=== PATIENT | male | born 1950 | race Caucasian/White ===

== ENCOUNTER 2019-02-05 09:27 | Day surgery (SDC) | payer MEDICARE ==
[~2019-02-05] VITALS: Ht 175.3 cm; Wt 95.9 kg
[~2019-02-05 09:27] MED LIST: Amaryl1 MG PO; Aspir 8181 MG PO; FENO145 PO; METF500 PO; METO25ER PO
--- NOTE | 2019-02-05 10:30 | NUR ---
02/05/19 1030 Eleni Santos History, Chart, Medications and Allergies reviewed before start of procedure. PATIENT CONFIRMS NPO STATUS AND AGREES WITH SCHEDULED PROCEDURE. MONITOR INTACT WITH CONTINUOUS PULSE OXIMETRY AND INTERMITTENT BP. O2 VIA N/C INTACT THROUGHOUT SEDATION/PROCEDURE. 3-LEAD EKG REVIEWED WITH PHYSICIAN PRIOR TO START OF PROCEDURE. PATIENT DETERMINED TO BE ASA APPROPRIATE FOR PROPOFOL SEDATION PRIOR TO START OF PROCEDURE BY DR. TEIXEIRA.
--- NOTE | 2019-02-05 10:34 | NUR ---
Ambulatory in Day Surgery History, Chart, Medications and Allergies reviewed before start of procedure.Patient confirms NPO status and agrees with scheduled surgery. Patient states colon prep results clear.Lungs clear T/O to Auscultation. Patient States Post-Procedure ride home has been arranged.
--- NOTE | 2019-02-05 11:15 | NUR ---
REPORT FROM RAINE BONILLA. PT DROWSY. VSS.
--- NOTE | 2019-02-05 11:32 | NUR ---
Patient up to Ambulate independently. Gait steady. Discharge instructions reviewed with patient. Patient verbalizes understanding. Copy given to patient to take home. Patient States Post-Procedure ride home has been arranged. Discharged via wheelchair to private car for ride home. HIGH FIBER DIET PAMPHLET SENT WITH PT. ALL BELONINGS RETURNED TO PATIENT.
== END 2019-02-05 22:40 | disposition home or self-care (01) ==
LOC: ORSCMMR 09:27 → ORD 10:30 → ORSCMMR 22:40
PROVIDERS: Internal Medicine Gastroenterology
PROC: 0DBN8ZX Excision of Sigmoid Colon, Via Natural or Artificial Opening Endoscopic, Diagnostic (ICD-10-PCS; principal; 2019-02-05 10:30)
PROC: 0DBM8ZX Excision of Descending Colon, Via Natural or Artificial Opening Endoscopic, Diagnostic (ICD-10-PCS; principal; 2019-02-05 10:30)
PROC: 0DBK8ZX Excision of Ascending Colon, Via Natural or Artificial Opening Endoscopic, Diagnostic (ICD-10-PCS; principal; 2019-02-05 10:30)
DX: Z12.11 Encounter for screening for malignant neoplasm of colon (principal); D12.2 Benign neoplasm of ascending colon; D12.4 Benign neoplasm of descending colon; K63.5 Polyp of colon; E11.9 Type 2 diabetes mellitus without complications; I25.2 Old myocardial infarction; E78.00 Pure hypercholesterolemia, unspecified; Z79.82 Long term (current) use of aspirin; Z79.899 Other long term (current) drug therapy
CPT/HCPCS: 82947; 88305; J2704; J7120

== ENCOUNTER 2022-05-13 03:56 | Inpatient (IN) | payer MEDICARE ==
[~2022-05-13] VITALS: Ht 175.3 cm; Wt 102.4 kg
[2022-05-13 04:25] LABS: Base Excess Venous -15.6 mmol/L; PCO2 Venous 38.8 mmHg (38-42)
[2022-05-13 04:26] LABS: pH Blood Venous 7.15 (7.34-7.37)
[2022-05-13 04:30] LABS: Calcium, Ionized (POC) 0.77 mmol/L (1.10-1.46); Chloride (POC) 96 mmol/L (98-108); Creatinine (POC) 3.6 mg/dL (0.8-1.3); Glucose (ISTAT POC) 658 mg/dL (70-99); Hemoglobin (POC) 20.4 g/dL (13.5-17.5); Potassium (POC) 3.7 mmol/L (3.5-5.5); Sodium (POC) 128 mmol/L (135-148); Total CO2 (POC) 14 mmol/L (21-32)
[2022-05-13 04:45] LABS: BASOPHILS ABSOLUTE AUTO 0.08 K/mm3 (0.00-0.23); BASOPHILS PERCENT AUTO 0 % (0-2); EOSINOPHILS PERCENT AUTO 0 % (0-6); Hemoglobin 19.1 g/dL (13.5-17.5); IMMATURE GRAN ABSOLUTE AUTO 0.18 K/mm3 (0.00-0.10); IMMATURE GRAN PERCENT AUTO 1 % (0-1); LYMPHOCYTES ABSOLUTE AUTO 1.38 K/mm3 (0.84-5.20); LYMPHOCYTES PERCENT AUTO 6 % (21-46); MONOCYTES ABSOLUTE AUTO 1.93 K/mm3 (0.16-1.47); MONOCYTES PERCENT AUTO 9 % (4-13); Mean Corpuscular HGB 29.9 pg (26.0-34.0); Mean Corpuscular HGB Conc 33.5 g/dL (31.5-36.5); Mean Corpuscular Volume 89 fL (80-100); Mean Platelet Volume 11.8 fL (9.1-12.4); NEUTROPHILS ABSOLUTE AUTO 17.89 K/mm3 (1.96-9.15); NEUTROPHILS PERCENT AUTO 83 % (41-73); Platelet Count 189 K/mm3 (150-400); RDW Coefficient Variation 12.6 % (11.7-14.2); RDW Standard Deviation 40.9 fL (35.1-46.3); Red Blood Cell Count 6.39 M/mm3 (4.30-5.90); White Blood Cell Count 21.46 K/mm3 (4.00-11.30)
[2022-05-13] MEDS ORDERED: GLIMEPIRIDE2 M2 PO (04:50)
[2022-05-13] MEDS ORDERED: FENOFIBRATE145 MG PO (04:50)
[2022-05-13] MEDS ORDERED: Glipizide Xl2.5 MG PO (04:50)
[2022-05-13] MEDS ORDERED: LOSARTAN POTASS25 M2 PO (04:51)
[2022-05-13 05:10] LABS: Albumin, Blood 3.4 g/dL (3.4-5.0); Albumin/Globulin Ratio 0.9 (0.8-1.8); Bilirubin, Direct 0.6 mg/dL (0.0-0.3); Bilirubin, Indirect 0.9 mg/dL (0.1-0.7); Bilirubin, Total 1.5 mg/dL (0.1-1.0); Bun/Creatinine Ratio 15.1 (12.0-20.0); Calcium, Blood 7.4 mg/dL (8.5-10.1); Creatinine, Blood 3.38 mg/dL (0.60-1.20); Globulin, Blood 3.7 g/dL (2.2-4.0); Magnesium, Blood 2.1 mg/dL (1.6-2.4); Potassium, Blood 3.7 mmol/L (3.5-5.5); Total Protein, Blood 7.1 g/dL (6.4-8.2)
[2022-05-13 05:19] LABS: Beta-hydroxybutyrate 6.9 mg/dL (0.2-2.8)
[2022-05-13 05:43] LABS: Influenza A, PCR NEGATIVE (NEGATIVE); Influenza B, PCR NEGATIVE (NEGATIVE); Resp Syncytial Virus, PCR NEGATIVE (NEGATIVE); SARS-Cov-2 (COVID-19) PCR, MMC NEGATIVE (NEGATIVE)
--- NOTE | 2022-05-13 07:14 | NUR ---
PATIENT TO ICU 9 AT 0615 FROM ED. PATIENT IS ALERT AND ORIENTED X4. 02 SATS 95% ON 10L NRB, RR 29. HR ST 150, BP STABLE. PATIENT DENIES CP/PRESSURE. INSULIN DRIP INF, CONTINUED AT ED RATE UNTIL LABS RESULT. SODIUM BICARB INF WELL PUSH GIVEN. CALL LIGHT IN REACH AND REPORT GIVEN TO DAYSHIFT RN.
[2022-05-13 10:12] LABS: Anion Gap 16 mmol/L (6-16); Blood Urea Nitrogen 48 mg/dL (8-24); Bun/Creatinine Ratio 14.5 (12.0-20.0); CO2, Blood 19 mmol/L (21-32); Chloride, Blood 100 mmol/L (98-108); Glomerular Filtration Rate 19 (60-); Glucose, Blood 430 mg/dL (70-99); Sodium, Blood 135 mmol/L (136-145)
[2022-05-13 10:13] LABS: Potassium, Blood 4.7 mmol/L (3.5-5.5)
[2022-05-13 12:37] LABS: Bun/Creatinine Ratio 16.9 (12.0-20.0); Calcium, Blood 6.7 mg/dL (8.5-10.1); Creatinine, Blood 2.95 mg/dL (0.60-1.20); Potassium, Blood 4.2 mmol/L (3.5-5.5)
[2022-05-13 12:59] LABS: CHOL/HDL RATIO 4.4; Cholesterol 66 mg/dL (50-200); HDL Cholesterol 15 mg/dL (>39); LDL/HDL RATIO 1.6; Low Density Lipoprotein Chol 24 mg/dL (0-110); Magnesium, Blood 1.2 mg/dL (1.6-2.4); Triglycerides 133 mg/dL (30-160); Very Low Density Lipoprot Chol 26 mg/dL (6-32)
[2022-05-13 16:39] LABS: CPK Creatine Kinase 833 U/L (39-308)
--- NOTE | 2022-05-13 17:42 | NUR ---
SHIFT SUMMARY NO ACUTE CHANGES THIS SHIFT. PT REMAINS ON 4L O2 NC. RR MID 30'S. PT DENIES PAIN, SOB, OR NAUSEA THIS SHIFT. PT BECOMING MORE CONFUSED/FORGETFUL THIS AFTERNOON. INSULIN GTT INFUSING AT 4 UNIT/HR AT THIS TIME AND NS AT 150 ML/HR. ABD REMAINS DISTENDED AND FIRM. PT WITHOUT ANY VOIDS THIS SHIFT, BLADDER SCANNED THIS AFTERNOON WITH 66 ML NOTED. PT WITH PG TO ALEX C/D/I AND 3 PIV'S. PT MED WITH IV LOPRESSOR PRN FOR HR 140'S, OTHERWISE VITAL SIGNS STABLE. WILL CONTINUE TO MONITOR AND REPORT OFF TO ONCOMING RN.
[2022-05-13 17:47] LABS: Bun/Creatinine Ratio 20.3 (12.0-20.0); Calcium, Blood 7.1 mg/dL (8.5-10.1); Creatinine, Blood 2.56 mg/dL (0.60-1.20); Potassium, Blood 3.7 mmol/L (3.5-5.5)
[2022-05-13 18:14] LABS: pH Blood Venous 7.29 (7.34-7.37)
[2022-05-13 18:15] LABS: Base Excess Venous -3.4 mmol/L; Bicarbonate Venous 19.8 mmol/L (24.0-30.0); PCO2 Venous 47.8 mmHg (38-42)
[2022-05-13 19:15] LABS: Source, Urine Straight Cath
--- NOTE | 2022-05-13 19:15 | NUR ---
DECOMPENSATION/INTUBATION PT WITH ACUTE RESPIRATORY DECOMPENSATION. PT TRIALED ON BIPAP AND GIVEN BREATHING TX INITIALLY. PT CONTINUED TO BE DIAPHORETIC AND RR 50'S. NOTIFIED DR QUINTERO. TECHNICAL MAINTENANCE SPECIALIST CONSULT OBTAINED. DR HOYT AT BEDSIDE TO SEE PT AT 1800. PT FAMILY NOTIFIED OF PLAN TO INTUBATE. PT SEDATED WITH VERSED AND PROPOFOL At 1851. PT INTUBATED AT 1856 WITH 8.0 ETT. COLOR CHANGE NOTED, BILAT BREATH SOUNDS NOTED. PT STARTED ON LEVOPHED GTT FOR HYPOTENSION AND LR BOLUS INFUSING. OGT PLACED WITH IMMEDIATE RETURN OF DARK BROWN/RED OUTPUT NOTED. BAH PLACED, UA SENT. DR HOYT AT BEDSIDE PLACING TRIALYSIS CATH AT THIS TIME. BEDSIDE REPORT TO NOC SHIFT RN TO ASSUME CARE GIVEN.
[2022-05-13 19:21] LABS: Appearance, Urine Cloudy (Clear); Blood, Urine 3+ (Neg); Color, Urine Yellow (P-Yellow); Glucose Qualitative, Urine 3+ (Neg); Ketones, Urine 1+ (Neg); Leukocyte Esterase, Urine 1+ (Neg); Nitrite, Urine Neg (Neg); Protein, Urine 2+ (Neg); Specific Gravity, Urine 1.025 (1.003-1.022); Urobilinogen, Urine NORM (Normal)
[2022-05-13 19:45] LABS: Bilirubin, Urine 1+ (Neg)
[2022-05-13 19:46] LABS: Bacteria Many /hpf; Mucus Light (0-Heavy); Squamous Epithelial Cells Few /hpf (Few); Transitional Epithelial Cells Rare /hpf (0-Rare)
[2022-05-13 22:00] LABS: International Normalized Ratio 1.42; Prothrombin Time Results 14.6 Sec (9.7-11.5)
[2022-05-13 22:32] LABS: PCO2 Arterial 31.1 mmHg (35-45); PO2 Arterial 323 mmHg (80-100); pH Blood Arterial 7.35 (7.35-7.45)
[2022-05-13 22:56] LABS: Creatine Kinase MB 3.2 ng/mL (0.0-3.6); Creatine Kinase MB Index 0.3 (0.0-4.0)
[2022-05-14 03:52] LABS: Hematocrit 40.8 % (37.0-53.0); Hemoglobin 14.5 g/dL (13.5-17.5); Mean Corpuscular HGB 30.5 pg (26.0-34.0); Mean Corpuscular HGB Conc 35.5 g/dL (31.5-36.5); Mean Corpuscular Volume 86 fL (80-100); Platelet Count 143 K/mm3 (150-400); RDW Coefficient Variation 12.8 % (11.7-14.2); RDW Standard Deviation 40.4 fL (35.1-46.3); Red Blood Cell Count 4.76 M/mm3 (4.30-5.90); White Blood Cell Count 17.36 K/mm3 (4.00-11.30)
[2022-05-14 04:52] LABS: BAND PERCENT MAN 7 % (0-8); BASOPHILS PERCENT MAN 0 % (0-2); EOSINOPHILS PERCENT MAN 0 % (0-6); LYMPHOCYTES ABSOLUTE MAN 0.69 K/mm3 (0.84-5.20); LYMPHOCYTES PERCENT MAN 4 % (21-46); METAMYELOCYTE ABSOLUTE MAN 0.52 K/mm3 (0.00-0.00); METAMYELOCYTE PERCENT MAN 3 % (0-0); MONOCYTES ABSOLUTE MAN 1.21 K/mm3 (0.16-1.47); MONOCYTES PERCENT MAN 7 % (4-13); MYELOCYTE ABSOLUTE MAN 0.17 K/mm3 (0.00-0.00); MYELOCYTE PERCENT MAN 1 % (0-0); NEUTROPHILS ABSOLUTE MAN 14.75 K/mm3 (1.96-9.15); SEG NEUTROPHILS PERCENT MAN 78 % (41-73); TOTAL CELLS COUNTED 100
[2022-05-14 05:45] LABS: Albumin, Blood 2.1 g/dL (3.4-5.0); Bilirubin, Direct 0.4 mg/dL (0.0-0.3); Bilirubin, Indirect 0.4 mg/dL (0.1-0.7); Bilirubin, Total 0.8 mg/dL (0.1-1.0); Bun/Creatinine Ratio 16.7 (12.0-20.0); Creatinine, Blood 3.47 mg/dL (0.60-1.20); Phosphorus, Blood 2.3 mg/dL (2.5-4.9); Potassium, Blood 4.2 mmol/L (3.5-5.5)
[2022-05-14 05:47] LABS: Albumin/Globulin Ratio 0.8 (0.8-1.8); Calcium, Blood 5.6 mg/dL (8.5-10.1); Globulin, Blood 2.7 g/dL (2.2-4.0)
[2022-05-14 05:48] LABS: Total Protein, Blood 4.8 g/dL (6.4-8.2)
--- NOTE | 2022-05-14 06:22 | NUR ---
SHIFT SUMMARY PATIENT REMAINS INTUBATED AND SEDATED. PROPOFOL AND PRECEDEX ON SB, VERSED @ 1.5 MG/HR, VASOPRESSIN ON SB, LEVOPHED @ 10 MCG/MIN, NICKI-SYNEPHRINE @ 100MCG/MIN, NS @ 200ML/HR, AND INSULIN @ 5 UNITS/HR. VENT SETTINGS AC/VC 16/500/8/40% WITH SPO2 MID TO HIGH 90'S. RR 17-25. PATIENT IS BECOMING MORE RESPONSIVE. ABLE TO MOVE HEAD SIDE TO SIDE AND LIFT ARMS, SQUEEZES HANDS, AND ATTEMPTS TO OPEN EYES. DURING THIS TIME PATIENT BEGAN GRIMACING MORE. CALL MADE TO DR. PETIT AND ORDERS RECEIVED FOR FENTANYL 50MCG IV Q1H PRN. ONE DOSE GIVEN AND PATIENT STOPPED GRIMACING AND BECAME LESS TENSE. LUNG SOUNDS REMAIN CLEAR WITH MINIMAL ETT SECRETIONS. BT ACTIVE X 4 WITH SEVERELY DISTENDED ABD FIRM TO PALPATION. TEMP BAH PATENT AND DRAINED 275ML OF DARK VINAYAK URINE. NO BM THIS SHIFT. OGT HAD 900ML DARK BROWN OUTPUT WITH BILE. ART LINE AND TRIALYSIS CATHETER PATENT AND BOTH DRESSINGS CHANGED THIS SHIFT. CRITICAL CALCIUM OF 5.6-IONIZED CALCIUM ORDERED. NO OTHER CHANGES DURING SHIFT.
--- NOTE | 2022-05-14 07:15 | NUR ---
Assumed care of pt at 0700. Report received from Cary BONILLA. Pt receiving versed at 1.5 mg/hr. Propofol off. RASS -1. Pt able to nod head yes/no to answer questions. Follows commands. Pt appears comfortable and free of pain. Moves around in bed but is receptive to verbal calming cues and therapeutic communication. 8.0 cm ETT is at expected location of 25 cm at gums. Vent settings ACVC 16/500/8/40%. SpO2 90% or greater per nasal SpO2 monitor. ETCO2 20. R axilla arterial line zeroed at level of phlebostatic access. Neosynephrine at 100 mcg/min. Levophed at 8 mcg/min. Vasopressin off.
[2022-05-14 08:52] LABS: PCO2 Arterial 29.5 mmHg (35-45); PO2 Arterial 76.2 mmHg (80-100); pH Blood Arterial 7.34 (7.35-7.45)
--- NOTE | 2022-05-14 09:00 | NUR ---
Pt became increasingly agitated, pulling against restraints and causing velcro to loosen. Patient no longer receptive to verbal redirection or therapeutic communication. ramp flight attendant at bedside to help calm patient while this RN provided pain medication. This did not decrease pt anxiety/agitation. Versed increased to 3 mg/hr and this RN provided update on pt's agitation to Dr Andersen. Provider ordered for propofol to be restarted. Propofol at 20 mcg/kg/min.
--- NOTE | 2022-05-14 13:00 | NUR ---
Dr Andersen to bedside to discuss trialysis catheter. Discussed that vasopressors have been infusing through central line without resistance or difficulty. Discussed that there has been no blood backflow into the catheter lumens or IV tubing. Catheter has been working as intended. Provider mentioned medial placement on chest xray. Connected distal port to pressure bag and transducer. Arterial waveform and BP populated onto monitor. Dr Andersen placed quad lumen central line to right subclavain vein with assist from this RN. Provider then removed trialysis catheter from right neck and held pressure for 15 minutes. At this point, site was dressed with tegaderm. Scant amount of sanguious drainage oozed from site. This is ok per Dr Andersen. No signs of hematoma or other complication on patient assessment.
--- NOTE | 2022-05-14 15:30 | NUR ---
Patient converted to atrial fibrillation with rapid ventricular response around 1500. Consequently, BP dropped, but MAP remained above 65. Charge RNs Anila and Monique in room to assist. Call placed to Dr Andersen to update, who quickly responded to assess patient at bedside. Provider ordered for remaining NS in room to be bolused (approx 700 mL) as well as cardizem IV push and cardizem drip. Provider ordered stat H&H and CXR to compare with previous films obtained today.
[2022-05-14 15:52] LABS: Hematocrit 37.2 % (37.0-53.0); Hemoglobin 12.9 g/dL (13.5-17.5)
--- NOTE | 2022-05-14 17:53 | NUR ---
SUMMARY Neuro/Mobility/Psych: At start of shift, pt receiving small amount of versed for vent tolerance. Pt alert, calm, cooperative. Able to answer yes/no questions and follow commands. Moves all extremities with equal strength and range of motion. Mid morning, pt became agitated and required resedation. Currently versed is at 1.5 mg/hr and propofol at 20 mcg/kg/min. RASS is -4. Patient remains on cooling blanket, with core temperature monitoring. Current temp is 100.6. Tylenol had minimal effect on pt's temperatures. ADLs: Total care for all ADLs including Q4H oral care, johnston care, and Q2H repositioning. Resp: Ventilator rate changed from 16 to 12 after AM ABG by RT and Dr Andersen. Currently vent settings are ACVC 12/500/8/45%. SpO2 90% or greater. ETCO2 21. Actual RR 29. Scant sputum aspirated from ETT. #8 ETT is at expected location of 25 cm at gums. Cardiac: Labile BP. At one point levophed was off, but now it is currently at 15 mcg/min. Phenylephrine is at 100 mcg/min. Converted to afib RVR this shift. Received diltiazem bolus and is currently on diltiazem drip at 10 mg/hr. Capillary refill greater than 3 seconds BUE and BLE. Thready distal pulses BUE and BLE. GI: Plan to start TF per orders. Fecal management system placed this shift for liquid brown BMs. : 150 mL milky brown/orange urine output this shift. Dr Andersen aware. Skin: More dusky appearance compared to start of shift. Otherwise, no changes. Family: Visited for approx 1 hour. Received updates from this RN and from Dr Andersen.
[2022-05-15 04:00] LABS: Hematocrit 38.7 % (37.0-53.0); Hemoglobin 13.2 g/dL (13.5-17.5); Mean Corpuscular HGB 30.1 pg (26.0-34.0); Mean Corpuscular HGB Conc 34.1 g/dL (31.5-36.5); Mean Corpuscular Volume 88 fL (80-100); Mean Platelet Volume 11.4 fL (9.1-12.4); Platelet Count 107 K/mm3 (150-400); RDW Coefficient Variation 13.1 % (11.7-14.2); RDW Standard Deviation 42.7 fL (35.1-46.3); Red Blood Cell Count 4.39 M/mm3 (4.30-5.90); White Blood Cell Count 11.11 K/mm3 (4.00-11.30)
[2022-05-15 04:14] LABS: Albumin, Blood 1.8 g/dL (3.4-5.0); Anion Gap 7 mmol/L (6-16); Blood Urea Nitrogen 60 mg/dL (8-24); Bun/Creatinine Ratio 19.4 (12.0-20.0); CO2, Blood 18 mmol/L (21-32); Calcium, Blood 7.3 mg/dL (8.5-10.1); Chloride, Blood 113 mmol/L (98-108); Glomerular Filtration Rate 21 (60-); Glucose, Blood 178 mg/dL (70-99); Magnesium, Blood 1.8 mg/dL (1.6-2.4); Phosphorus, Blood 3.8 mg/dL (2.5-4.9); Potassium, Blood 3.6 mmol/L (3.5-5.5); Sodium, Blood 138 mmol/L (136-145)
[2022-05-15 04:53] LABS: BAND PERCENT MAN 20 % (0-8); BASOPHILS PERCENT MAN 0 % (0-2); EOSINOPHILS PERCENT MAN 0 % (0-6); LYMPHOCYTES ABSOLUTE MAN 0.55 K/mm3 (0.84-5.20); LYMPHOCYTES PERCENT MAN 5 % (21-46); MONOCYTES ABSOLUTE MAN 0.77 K/mm3 (0.16-1.47); MONOCYTES PERCENT MAN 7 % (4-13); NEUTROPHILS ABSOLUTE MAN 9.77 K/mm3 (1.96-9.15); SEG NEUTROPHILS PERCENT MAN 68 % (41-73); TOTAL CELLS COUNTED 100
--- NOTE | 2022-05-15 06:27 | NUR ---
PATIENT OPENS EYES TO TOUCH AND MOVES ALL EXTREMITIES SPONTANEOUSLY. DOES NOT FOLLOW COMMANDS OR NOD APPROPRIATELY. CARDIAC RHYTHM CONVERTED TO NSR OVERNIGHT BUT HAS INTERMITTENTLY BRIEFLY GONE BACK INTO AFIB SEVERAL TIMES. DILTIAZEM TURNED OFF AND HR 90-110. VASOPRESSORS TURNED OFF AND MAP >65. TMAX 100.8F, NOW DOWN TO 99.0F AND COOLING BLANKET REMOVED. PATIENT INTUBATED AND VENTILATOR SETTINGS UNCHANGED OVERNIGHT. SCANT INLINE SECRETIONS. TUBE FEEDING TURNED OFF DUE TO RESIDUALS >1100 ML. OGT TO LIS. RECTAL TUBE IN PLACE. BAH PATENT WITH URINE OUTPUT DECREASING OVERNIGHT. Q1 BG CHECKS AND ON INSULIN GTT. TROPONIN CRITICALLY HIGH, PROVIDER NOTIFIED AND WILL RECHECK AT 0700.
--- NOTE | 2022-05-15 08:00 | NUR ---
Assumed care of pt at 0700. Report received from Medardo BONILLA. Pt is sedated with 10 mcg/min propofol. RASS -3. #8 ETT is at expected placement of 25 cm at gums. Vasopressors off. BP stable per R axillary art line. Tube feeds stopped over night due to high residuals. Additionally green stain noted from pt's mouth, extending down neck to chest. OG tube to LIS with approx 500 mL in suction canister. Per offgoing RN, urine output tapered down towards end of shift. No new drainage noted in jhonston since it was last emptied. Absent BT and no new output from rectal tube. Abd bigger than it was yesterday. Pt grimaces with palpation. Abd is neither more firm nor soft compared to yesterday. Dr Andersen notified of assessment changes.
--- NOTE | 2022-05-15 08:15 | NUR ---
Sedation interruption performed. Pt moves BUE and BLE with equal strength and range of motion. Instructed patient through range of motion exercises for arms and legs. Pt able to nod head yes/no to answer questions. Gave patient orientation for date/time as well as plan of care.
--- NOTE | 2022-05-15 09:00 | NUR ---
Noticed that there was no new urine output in johnston since it had been emptied on previous shift. Additionally, there was scant drainage of urine at urethra, around catheter. Bladder scan performed showed 200+ mL of urine in bladder. Attempted to flush and aspirate johnston catheter but it was obstructed. Catheter removed and replaced with new temp probe johnston. Dr Ganesh patterson.
[2022-05-15 09:28] LABS: Source, Urine Foley catheter
[2022-05-15 09:31] LABS: Bilirubin, Urine Neg (Neg); Blood, Urine 5+ (Neg); Glucose Qualitative, Urine Neg (Neg); Ketones, Urine Neg (Neg); Leukocyte Esterase, Urine 2+ (Neg); Nitrite, Urine Neg (Neg); Protein, Urine 2+ (Neg); Urobilinogen, Urine NORM (Normal)
[2022-05-15 09:41] LABS: Appearance, Urine Cloudy (Clear); Color, Urine Yellow (P-Yellow)
[2022-05-15 09:43] LABS: Uric Acid Crystals Mod /hpf
[2022-05-15 09:44] LABS: Bacteria Few /hpf; Squamous Epithelial Cells Rare /hpf (Few)
--- NOTE | 2022-05-15 11:00 | NUR ---
Spouse in to see patient. Provided her with handouts regarding visitor guidelines and "What to Expect When a Loved One is on a Ventilator" as an adjunct to verbal education that has been provided.
--- NOTE | 2022-05-15 12:18 | NUR ---
Noticed new area of redness on L side of abdomen. Most prominent to LUQ and fades into LLQ. Area of redness is also warmer to touch than surrounding skin. Discussed with charge RNs Anila and Monique. Notified Dr Andersen, who presented to pt's bedside to reassess. Discussed that pt's BP remains stable. Pt is continuing to produce urine (since johnston was replaced). Plan to continue with OG tube to LIS. Potential plan to perform repeat ABD CT tomorrow.
--- NOTE | 2022-05-15 18:21 | NUR ---
SUMMARY Neuro/Musc: Receiving propofol at 15 mcg/kg/min. RASS is between -2 and -3. With this amt of propofol, pt has opened eyes to verbal stimulus and followed directions. However, pt did not become alert with most recent reposition. Pt moves all extremities with equal strength and range of motion. Pt was able to be coached through active ROM exercises earlier today. Temperature trending upwards. Current temp is 100.5 which is t-max for this shift. Blankets removed, fan pointed towards patient, cool wash cloth to forehead, and tylenol given. Pt is not shivering. ADLs: Total care for all ADLs including Q4H oral care, Q2H reposition. Resp: Lungs fluctuate between coarse and clear. Scant secretions through ETT. Vent settings remain ACVC 12/500/8/40%. SpO2 90% or greater. ETCO2 20. Cardiac: SR to ST per monitor. No afib with RVR this shift. Vasopressors have remained off this shift. Pt actually required one dose of IV labetalol for high BP. Arterial line remains to R axilla. Color, sensation, pulses, capillary refill equal BUE and BLE. GI: OG tube has been to LIS for majority of shift. It is currently clamped due to recent tylenol administration. Plan to return to suction 30 mins after meds given. 1 L green output during first half of shift. Minimal output during second half of shift. Tube remains patent. Rectal tube had 200 mL of liquid brown output; considerable amount of gas passed through tube as well. Abd is severely distended. Pt grimaces with palpation. : Pt had excellent urine output following administration of lasix. Urine also changed from turbid brown/orange to clear yellow. No issues with urine flow through johnston after catheter was switched out today. Skin: Red area to skin on ABD has progressed, appears more rash-like than ecchymosis. No additional changes to skin. Psych: Family in to see patient today. Update given. IV: All IVs infusing through CVC in R subclavian vein. Pt has NS infusing at 100 mL per hour, clarified with Dr Andersen that he would like these fluids to continue.
--- NOTE | 2022-05-15 19:30 | NUR ---
ASSUMPTION OF CARE PT IS INTUBATED VIA ETT TUBE WHICH IS INTACT AND PATENT TO THE VENTILATOR. PT HAS BILATERAL BREATH SOUNDS AND OXYGEN SAT IS 95% AT THIS TIME. PT IS SEDATED W/PROPOFOL INFUSION. PT HAS ART LINE W/PROPER WAVE FORM SHOWING BP W/MAP >65 AT THIS TIME. INSULIN GTT IS INFUSING AT 2 UNITS/HOUR. PT ABD IS DISTENDED, FIRM, AND TENDER W/SOME REDNESS NOTED, DR WALL IS AWARE. OG TUBE TO ILWS IS DRAINING GREEN BILE. RECTAL TUBE IS DRAINING BROWN LIQUID STOOL TO GRAVITY. 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 BAH CATH IS INTACT PATENT AND DRAINING ORANGE URINE TO GRAVITY BELOW THE LEVEL OF THE BLADDER. PUPILS ARE EQUAL AND BRISKLY REACTIVE TO LIGHT. PT HAS RIGHT SUBCLAVIAN CVL.
[2022-05-16 03:41] LABS: Hemoglobin 11.6 g/dL (13.5-17.5); Mean Corpuscular HGB 30.1 pg (26.0-34.0); Mean Corpuscular HGB Conc 34.1 g/dL (31.5-36.5); Mean Corpuscular Volume 88 fL (80-100); Mean Platelet Volume 10.8 fL (9.1-12.4); Platelet Count 109 K/mm3 (150-400); RDW Coefficient Variation 13.2 % (11.7-14.2); Red Blood Cell Count 3.85 M/mm3 (4.30-5.90); White Blood Cell Count 9.73 K/mm3 (4.00-11.30)
[2022-05-16 04:26] LABS: Albumin, Blood 1.6 g/dL (3.4-5.0); Anion Gap 8 mmol/L (6-16); Blood Urea Nitrogen 60 mg/dL (8-24); Bun/Creatinine Ratio 26.8 (12.0-20.0); CO2, Blood 17 mmol/L (21-32); Calcium, Blood 7.4 mg/dL (8.5-10.1); Chloride, Blood 115 mmol/L (98-108); Creatinine, Blood 2.24 mg/dL (0.60-1.20); Glomerular Filtration Rate 31 (60-); Glucose, Blood 194 mg/dL (70-99); Phosphorus, Blood 3.7 mg/dL (2.5-4.9); Potassium, Blood 3.3 mmol/L (3.5-5.5); Sodium, Blood 140 mmol/L (136-145)
[2022-05-16 04:36] LABS: BAND PERCENT MAN 12 % (0-8); BASOPHILS PERCENT MAN 0 % (0-2); EOSINOPHILS PERCENT MAN 0 % (0-6); LYMPHOCYTES ABSOLUTE MAN 0.77 K/mm3 (0.84-5.20); LYMPHOCYTES PERCENT MAN 8 % (21-46); METAMYELOCYTE ABSOLUTE MAN 0.19 K/mm3 (0.00-0.00); METAMYELOCYTE PERCENT MAN 2 % (0-0); MONOCYTES ABSOLUTE MAN 0.87 K/mm3 (0.16-1.47); MONOCYTES PERCENT MAN 9 % (4-13); MYELOCYTE ABSOLUTE MAN 0.09 K/mm3 (0.00-0.00); MYELOCYTE PERCENT MAN 1 % (0-0); NEUTROPHILS ABSOLUTE MAN 7.78 K/mm3 (1.96-9.15); SEG NEUTROPHILS PERCENT MAN 68 % (41-73); TOTAL CELLS COUNTED 100
--- NOTE | 2022-05-16 08:00 | NUR ---
INITIAL ASSESSMENT PATIENT INTUBATED AND ON SEDATION. PATIENT RESPONDS TO VERBAL STIMULI AND IS ABLE TO OPEN EYES AND MOVE EXTREMITIES WHEN ASKED. PATIENT HAS CORE TEMP OF 99.2 DEGREES FAHRENHEIT. NO SIGNS OF PAIN NOTED AT THIS TIME. PATIENT ON ACVC 12, TV 500, PEEP 8 AND 30% FIO2. LUNGS COARSE T/O. NO SPUTUM NOTED WITH SUCTIONING THIS AM. PATIENT IN SR WITH PACS, HR 90S TO 120S. SBP 160S TO 170S. ARMS AND LEGS EDEMATOUS. ABD SEVERELY DISTENDED, SOFT, WITH HYPOACTIVE BOWEL SOUNDS NOTED. RECTAL TUBE IN PLACE DRAINING PRISCA COLORED, LIQUID STOOL. OG TO LIS DRAINING BILE. TEMP BAH DRAINING ORANGE COLORED URINE WITH SEDIMENT NOTED. SCROTAL SWELLING NOTED. SKIN PALE AND COOL. ABD SLIGHTLY REDDENED AND HOT TO TOUCH; DR. HOYT AWARE. COCCYX REDDENED. INSULIN INFUSING AT 4 UNITS/ HOUR, NS AT 100 MLS/ HOUR, NS TKO, PROPOFOL AT 20 MCG/ KG/ MINUTE. BED LOW, CALL LIGHT IN REACH. AND DAUGHTER AT BEDSIDE. WILL CONTINUE TO MONITOR PATIENT FREQUENTLY THROUGHOUT SHIFT.
--- NOTE | 2022-05-16 09:00 | NUR ---
DR. HOYT UPDATED ON PATIENT STATUS. INFORMED THAT PATIENT ON OG TO LIS OVERNIGHT AND THAT DRAINED 350 MLS OF BILE OVERNIGHT. INFORMED THAT 200 MLS BILE DRAINED THIS SHIFT THUS FAR. STATED TO KEEP OG TO LIS ANOTHER DAY AND WILL REASSESS TOMORROW. INFORMED THAT LIPASE LEVELS IMPROVING. INFORMED THAT PATIENT HYPERTENSIVE THIS AM WITH SBP IN THE 160S.
--- NOTE | 2022-05-16 13:00 | NUR ---
PATIENT HAS TEMP OF 99.4 DEGREES FAHRENHEIT. HR 90S TO 1-TEENS. SBP IN THE 180S. PRN LABETALOL GIVEN. SBP NOW IN THE 120S. PATIENT DID WELL ON SEDATION VACATION AND WEAN. PATIENT WANTED TO GO BACK TO SLEEP SO WAS PLACED BACK ON PROPOFOL. BLOOD SUGAR 170; COVERAGE GIVEN. NO OTHER ACUTE CHANGES TO NOTE ON AT THIS TIME. WILL CONTINUE TO MONITOR.
--- NOTE | 2022-05-16 16:00 | NUR ---
PATIENT HAS CORE TEMP OF 99.4 DEGREES FAHRENHEIT. HR 90S TO LOW 100S. SBP 130S TO 160S. NO OTHER ACUTE CHANGES TO NOTE ON AT THIS TIME.
--- NOTE | 2022-05-16 18:37 | NUR ---
SHIFT SUMMARY PATIENT REMAINED INTUBATED. PATIENT HAD SEDATION VACATION AND WEAN TODAY AND DID WELL. PATIENT PLACED BACK ON SEDATION COMMUNICATED HE WANTED TO GO BACK TO SLEEP AND REST. PATIENT REMAINED RESPONDING TO VERBAL STIMULI AND MOVING ALL EXTREMITIES TO COMMAND. PATIENT HAD TMAX OF 99.7 DEGREES FAHRENHEIT. PATIENT GIVEN PRN FENTANYL A FEW TIMES FOR COMPLAINTS OF PAIN. PATIENT COMMUNICATED THAT HIS STOMACH DIDN'T HURT AND THAT THE ETT WAS WHAT WAS MAKING HIM UNCOMFORTABLE. PATIENT ON ACVC 12, TV 500, PEEP 8 AND 30% FIO2. PATIENT ON 14/5 AND 25% FIO2 FOR SPONTANEOUS PRESSURE SUPPORT WEAN. PATIENT REMAINED EITHER SR OR SR WITH PACS. HR 90S TO 120S. SBP 130S TO 190S. PRN LABETALOL GIVEN OT FOR SBP GREATER THAN 170. EDEMA TO ARMS, HANDS AND LEGS REMAIN. ABD REMAINS DISTENDED, THOUGH SOFT. PATIENT HAD 1200 MLS OF PRISCA COLORED, LIQUID STOOL OUT FROM RECTAL TUBE. OG REMAINS TO LIS PER DR. HOYT FOR TODAY; MAY RESUME TOMORROW. BAH DRAINED 900 MLS ORANGE COLORED URINE WITH SEDIMENT NOTED. NO CHANGES TO SKIN NOTED. PIC TAKEN OF NONBLANCHEABLE AREA ON R BUTTOCK. PATIENT REPOSITIONED Q2H. INSULIN DRIP DC'D THIS SHIFT. NS DECREASED FROM 100 MLS/ HOUR TO 75 MLS/ HOUR. PROPOFOL INCREASED FROM 20 TO 40 MCG/ KG/ MINUTE TO KEEP PATIENT CALM AND COMFORTABLE. PATIENT RECEIVED 20 MEQ KCL THIS SHIFT FOR AM POTASSIUM LEVEL OF 3.3. BLOOD SUGARS 159, 152, 170 AND 210 THIS SHIFT. PATIENT'S AND DAUGHTER IN MOST OF THE DAY. BED LOW, CALL LIGHT IN REACH. PATIENT APPEARS COMFORTABLE AT THIS TIME. REPORT WILL BE GIVEN TO ASSUMING ORDER BUILDER NURSE SHORTLY.
[2022-05-17 04:55] LABS: Hemoglobin 11.5 g/dL (13.5-17.5); LYMPHOCYTES ABSOLUTE AUTO 0.72 K/mm3 (0.84-5.20); LYMPHOCYTES PERCENT AUTO 6 % (21-46); MONOCYTES ABSOLUTE AUTO 1.02 K/mm3 (0.16-1.47); MONOCYTES PERCENT AUTO 9 % (4-13); Mean Corpuscular HGB 30.3 pg (26.0-34.0); Mean Corpuscular HGB Conc 33.8 g/dL (31.5-36.5); Mean Corpuscular Volume 90 fL (80-100); Mean Platelet Volume 10.9 fL (9.1-12.4); Platelet Count 159 K/mm3 (150-400); RDW Coefficient Variation 13.7 % (11.7-14.2); RDW Standard Deviation 44.8 fL (35.1-46.3); Red Blood Cell Count 3.79 M/mm3 (4.30-5.90); White Blood Cell Count 11.28 K/mm3 (4.00-11.30)
[2022-05-17 05:17] LABS: BASOPHILS ABSOLUTE AUTO 0.02 K/mm3 (0.00-0.23); BASOPHILS PERCENT AUTO 0 % (0-2); EOSINOPHILS ABSOLUTE AUTO 0.03 K/mm3 (0.00-0.68); EOSINOPHILS PERCENT AUTO 0 % (0-6); IMMATURE GRAN ABSOLUTE AUTO 0.48 K/mm3 (0.00-0.10); IMMATURE GRAN PERCENT AUTO 4 % (0-1); NEUTROPHILS ABSOLUTE AUTO 9.01 K/mm3 (1.96-9.15); NEUTROPHILS PERCENT AUTO 80 % (41-73)
[2022-05-17 05:20] LABS: Albumin, Blood 1.6 g/dL (3.4-5.0); Anion Gap 9 mmol/L (6-16); Blood Urea Nitrogen 49 mg/dL (8-24); CO2, Blood 16 mmol/L (21-32); Calcium, Blood 7.4 mg/dL (8.5-10.1); Chloride, Blood 119 mmol/L (98-108); Creatinine, Blood 1.36 mg/dL (0.60-1.20); Glomerular Filtration Rate 56 (60-); Glucose, Blood 254 mg/dL (70-99); Phosphorus, Blood 3.3 mg/dL (2.5-4.9); Potassium, Blood 3.7 mmol/L (3.5-5.5); Sodium, Blood 144 mmol/L (136-145)
--- NOTE | 2022-05-17 05:33 | NUR ---
SHIFT SUMMERY PT IS INTUBATED VIA ETT, CURRENTLY ON SEDATION VACATION AND SPONTANEOUS BREATHING TRAIL. TOLERATING BOTH WELL AT THIS TIME. PRN LABETOLOL GIVEN FOR SYSTOLIC >170 PER MD ORDERS ONCE DURING SHIFT. OTHERWISE VS HAVE REMAINED STABLE. OG TUBE DRAINING GREEN BILE. ADEQUATE URINE OUTPUT VIA BAH. RECTAL TUBE DRAINING LIQUID BROWN STOOL TO GRAVITY. NO ACUTE CHANGES OVERNIGHT.
--- NOTE | 2022-05-17 08:00 | NUR ---
INITIAL ASSESSMENT PATIENT INTUBATED AND SEDATED. PATIENT RESPONDS TO VERBAL STIMULI. PATIENT WEAK BUT ABLE TO WIGGLE FINGERS AND TOES. PATIENT HAS TEMP OF 99.4 DEGREES FAHRENHEIT. PATIENT ON ACVC 12, TV 500, PEEP 8 AND 30% FIO2. LUNGS CLEAR T/O AND DIMINISHED IN LOWER LOBES. PATIENT IN SR, HR IN THE LOW 100S. SBP 140S TO 150S. EDEMA TO ARMS, HANDS AND LEGS NOTED. RECTAL TUBE IN PLACE DRAINING RPISCA COLORED, LIQUID STOOL. OG TO LIS. ABD DISTENDED, SOFT, WITH HYPOACTIVE BOWEL SOUNDS NOTED. BAH DRAINING ORANGE COLORED URINE WITH SEDIMENT NOTED. SCROTAL SWELLING NOTED. ABD REDDENED AND HOT; UNCHANGED FROM YESTERDAY. SKIN OTHERWISE PALE AND COOL. NONBLANCHEABLE AREA NOTED TO R BUTTOCK. NS INFUSING AT 75 MLS/ HOUR, PROPOFOL AT 30 MCG/ KG/ MINUTE. BED LOW, CALL LIGHT IN REACH. AND DAUGHER AT BEDSIDE.
--- NOTE | 2022-05-17 11:24 | NUR ---
PATIENT EXTUBATED AT 1118. PATIENT SATTING HIGH 90S ON 2 L NC. AND DAUGHTER AT BEDSIDE. PATIENT CALM AND COOPERATIVE.
--- NOTE | 2022-05-17 12:15 | NUR ---
PATIENT HAS TEMP OF 99.2 DEGREES FAHRENHEIT. HR 90S TO 1-TEENS. SBP 190S; PRN LABETALOL GIVEN. SBP NOW IN THE 140S. PATIENT DISORIENTED TO TOWN. OG DC'D WHEN PATIENT EXTUBATED THIS AM. PATIENT ON 2 L NC AND REMAINS SATTING 90% AND GREATER.
--- NOTE | 2022-05-17 16:45 | NUR ---
PATIENT ALERT AND ORIENTED EXCEPT TO EVENT. HR 90S TO LOW 100S. SBP 190S; PRN LABETALOL GIVEN. SBP NOW 160S. NO OTHER ACUTE CHANGES TO NOTE ON AT THIS TIME. WILL CONTINUE TO MONITOR.
--- NOTE | 2022-05-17 19:07 | NUR ---
SHIFT SUMMARY PATIENT EXTUBATED TODAY BEFORE NOON. PATIENT REMAINED SATTING HIGH 90S ON 2 L NC. PATIENT REMAINED MOSTLY ORIENTED. PATIENT HAS HAD NO COMPLAINTS OF PAIN. PATIENT HAD TMAX OF 99.5 DEGREES FAHRENHEIT. LUNGS REMAINED CLEAR. PATIENT REMAINED SR TO ST, HR 90S TO 1-TEENS. SBP 140S TO 190S. RECTAL TUBE DRAINED 400 MLS GREEN, LIQUID STOOL. PATIENT REMAINED NPO. 1650 MLS OF ORANGE COLORED URINE WITH SEDIMENT DRAINED FROM BAH. NO CHANGES TO SKIN NOTED. ARTERIAL LINE DC'D THIS SHIFT. PT/ OT WORKED WITH PATIENT AND GOT UP TO CHAIR WITH LIFT. MED REC COMPLETED THIS SHIFT. BLOOD SUGARS REMAINED IN 200S. AND DAUGHTER VISITED THIS AM. PATIENT APPEARS COMFORTABLE AT THIS TIME. BED LOW, CALL LIGHT IN REACH. REPORT HAS BEEN GIVEN TO ASSUMING FLASHER ADJUSTER NURSE.
--- NOTE | 2022-05-17 20:00 | NUR ---
ASSUMPTION OF CARE NOTE PT IS ALERT AND ORIENTED X3. HE IS VERY WEAK W/WEAK COUGH EFFORT. ENCOURAGED TO COUGH AND DEEP BREATH. HE IS ON 2LNC W/OXYGEN SAT >90%. HE IS SLOW TO RESPONDS AND SPEECH IS SLOW WELL. HE DENIES ANY PAIN OR DISCOMFORT AT THIS TIME. 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
[2022-05-18 04:51] LABS: Hematocrit 33.3 % (37.0-53.0); Hemoglobin 11.2 g/dL (13.5-17.5); LYMPHOCYTES ABSOLUTE AUTO 0.89 K/mm3 (0.84-5.20); LYMPHOCYTES PERCENT AUTO 6 % (21-46); MONOCYTES ABSOLUTE AUTO 0.91 K/mm3 (0.16-1.47); MONOCYTES PERCENT AUTO 6 % (4-13); Mean Corpuscular HGB 29.8 pg (26.0-34.0); Mean Corpuscular HGB Conc 33.6 g/dL (31.5-36.5); Mean Corpuscular Volume 89 fL (80-100); Mean Platelet Volume 10.9 fL (9.1-12.4); NRBC ABSOLUTE 0.02 K/mm3 (0.00-0.02); NRBC Auto 0.1 /100 WBC (0.0-0.2); Platelet Count 212 K/mm3 (150-400); RDW Coefficient Variation 13.9 % (11.7-14.2); RDW Standard Deviation 44.8 fL (35.1-46.3); Red Blood Cell Count 3.76 M/mm3 (4.30-5.90); White Blood Cell Count 14.37 K/mm3 (4.00-11.30)
[2022-05-18 05:11] LABS: Albumin, Blood 1.7 g/dL (3.4-5.0); Anion Gap 9 mmol/L (6-16); Blood Urea Nitrogen 42 mg/dL (8-24); CO2, Blood 18 mmol/L (21-32); Calcium, Blood 7.9 mg/dL (8.5-10.1); Chloride, Blood 123 mmol/L (98-108); Creatinine, Blood 0.89 mg/dL (0.60-1.20); Glomerular Filtration Rate 92 (60-); Glucose, Blood 278 mg/dL (70-99); Magnesium, Blood 2.6 mg/dL (1.6-2.4); Phosphorus, Blood 2.6 mg/dL (2.5-4.9); Potassium, Blood 3.6 mmol/L (3.5-5.5); Sodium, Blood 150 mmol/L (136-145)
[2022-05-18 05:12] LABS: BASOPHILS ABSOLUTE AUTO 0.02 K/mm3 (0.00-0.23); BASOPHILS PERCENT AUTO 0 % (0-2); EOSINOPHILS ABSOLUTE AUTO 0.02 K/mm3 (0.00-0.68); EOSINOPHILS PERCENT AUTO 0 % (0-6); IMMATURE GRAN PERCENT AUTO 6 % (0-1); NEUTROPHILS ABSOLUTE AUTO 11.63 K/mm3 (1.96-9.15); NEUTROPHILS PERCENT AUTO 81 % (41-73)
--- NOTE | 2022-05-18 06:03 | NUR ---
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 HYPERTENSIVE AT TIMES, GIVEN PRN MEDICATIONS PER MD ORDERS. OXYGEN SAT ARE 96% ON 2LNC. HE IS ALERT AND ORIENTED X3, SPEECH IS SLOW. GENERALIZED WEAKNESS. PT HAS DENIES ANY PAIN OR DISCOMFORT THROUGHOUT THE NIGHT. NO ACUTE CHANGES TO CONDITION THIS SHIFT.
--- NOTE | 2022-05-18 08:00 | NUR ---
PT A&OX4. GUADALUPE, BUT GENERALLY WEAK. PT HAS MINIMAL FINE MOTOR MOVEMENT OF HANDS THEY ARE VERY SWOLLEN. VOICE IS HOARSE AND COUGH IS VERY WEAK. PT IS NPO HE IS AT HIGH RISK FOR ASPIRATION. ECG SHOWS AFIB/FLUTTER AND INTERMITTENT ST WITH FREQUENT PAC'S-RATE 100-110'S. SBP 170-180'S MED WITH LABETOLOL 20 MG IVP X 1-SEE EMAR. PT HAS GENERALIZED EDEMA. ABDOMEN DISTENDED AND FIRM WITH HYPOACTIVE BT'S X 4. SCROTUM AND PENIS VERY EDEMATOUS. PT HANDS WITH 3+ EDEMA. LUNGS DIMINISHED IN THE BASES R>L. SATS>90% ON 2 LITERS NASAL CANULA. MILD EXERTIONAL DYSPNEA NOTED WITH TURNING ETC. CONTINUE NPO. CBG EVERY 6 HOURS. ANTICIPATE SWALLOW EVAL TODAY. RECTAL TUBE CONTINUES TO DRAIN MODERATE AMOUNT OF BROWN, LIQUID STOOL. IF PT TO REMAIN NPO, WILL DISCUSS NUTRITION/IVF WITH DR. HUMPHREY. PT SKIN IS PALE, WARM, AND DRY. SMALL, PURPLE, NONBLANCHABLE SPOT ON RIGHT BUTTOCK. MEPILEX REMOVED TO VISUALIZE AND THEN REPLACED-NO NOTED OPEN AREAS OR BREAKDOWN. CALAZIME PLACED TO WALDEMAR/ANAL AREA IT APPEARS SLIGHTLY RED AND EXCORIATED. AM CARE, ORAL CARE, CATH CATH, WALDEMAR CARE, BACK WASHED, RECTAL TUBE CARE, LINEN CHANGE COMPLETED. CEILING LIFT USED TO GET PT OOB TO CHAIR-TOLERATED WELL. CALL LIGHT WITHIN REACH.
--- NOTE | 2022-05-18 09:30 | NUR ---
PT WORKING WITH OCCUPATIONAL THERAPY-VERY COOPERATIVE. NO NOTED DISTRESS.
--- NOTE | 2022-05-18 11:30 | NUR ---
PT REQUESTS TO GET BACK TO BED. ORAL CARE, SPONGE BATH, NEW GOWN, SHAMPOO DONE, THEN CEILING LIFT USED TO GET PT BACK TO BED. POSITIONED TO LEFT SIDE. ECG SHOWS SR TO ST WITH FREQUENT PAC'S. SBP 170-180'S. DR. HUMPHREY AWARE. EDEMA UNCHANGED. URINE OUTPUT ADEQUATE. SWALLOW EVAL STILL PENDING. IF PT FAILS SWALLOW EVAL, DOBHOFF TO BE PLACED TO BEGIN ENTERAL FEEDINGS (TRICKLE).
--- NOTE | 2022-05-18 12:45 | NUR ---
SBP 170'S-180'S. FIRST DOSE OF LASIX GIVEN-SEE EMAR. URINE OUTPUT 700 CC SO FAR THIS SHIFT. CBG 253 COVERED PER SLIDING SCALE.
--- NOTE | 2022-05-18 18:30 | NUR ---
SHIFT SUMMARY: PT OOB TO CHAIR FOR MOST OF THE DAY. PT WORKED WITH PT/OT/ST. PT PASSED HIS SWALLOW EVAL AND MECHANICAL SOFT DIET ORDERED. IRENE MCGEE ASSISTED PT WITH DINNER TRAY AND PT BEGAN COUGHING AFTER ONE BITE. DIET CHANGED TO PUREE AND PT TOLERATED WELL. CBG'S CHANGED TO AC & HS NOW THAT EATING. INSULIN CHANGED TO HUMALOG PER DR. HUMPHREY-STILL MEDIUM SCALE. HR 90-100'S SR TO ST WITH FREQUENT PAC'S. SBP 150'S. URINE OUTPUT 1000 CC SINCE LASIX IVP GIVEN-SEE EMAR. ONCE PT FINISHED WITH DINNER, HE REQUESTED TO GET BACK TO BED. REQUEST GRANTED-CEILING LIFT UTILIZED. RECTAL TUBE CARE DONE AND PT POSITIONED TO COMFORT ON RIGHT SIDE. EXTENDED DWELL CATHETER PLACED BY IRENE MCGEE. CENTRAL LINE TO BE REMOVED ON NOC SHIFT PRIOR TO TRANSFER TO PCU.
--- NOTE | 2022-05-18 21:50 | NUR ---
ASSUMPTION OF CARE/TRANSFER NOTE REPORT TAKEN FROM RHYS RN IN THE ICU PRIOR TO TRANSFER. PATIENT TRANSFERRED TO PCU AND TRANSFERRED TO BED VIA SLIDE SHEET. PATIENT ON RA UPON ARRIVAL WITH SPO2 91-93%. AUDIBLE WHEEZING HEARD BY THIS RN. LS REVEAL WHEEZING THROUGHOUT, WITH CRACKLES HEARD IN UPPER LOBES. PATIENT WITH WEAK COUGH AND DENIES PRODUCING ANY SPUTUM. CALL PLACED TO RT D/T WHEEZING. RT YAKOV SPOKE TO THIS RN STATING THAT IT IS MORE CARDIAC RELATED AND HE DOES NOT NEED BREATHING TREATMENT; PATIENT GIVEN EVENING DOSE OF LASIX ALREADY. THIS RN WILL CALL RT IF WHEEZING WORSENS FOR POSSIBLE CPAP/BIPAP PROTOCOL. PATIENT WITH SBP OF 160 UPON ARRIVAL; PATIENT WAS MEDICATED FOR HTN PRIOR TO TRANSFER FOR SBP 180'S. PATIENT DENIES CHEST PAIN/PRESSURE AT THIS TIME. WEAKNESS NOTED IN ALL EXTREMETIES. BUE EDEMA NOTED. EXTREMETIES ELEVATED. PATIENT WITH MEPILEX ON COCCYX, C/D/I. RECTAL TUBE PATENT AND DRAINING LIQUID GREEN BM. BAH CATHETER DRAINING DARK YELLOW URINE. PATIENT BEING REPOSITIONED Q2HRS. HOB ELEVATED. DRESSING'S ON RIGHT CHEST WALL AND NECK C/D/I, SUBCLAVIAN CENTRAL LINE REMOVED PRIOR TO TRANSFER. PATIENT A&O BUT SLOW TO RESPOND AND APPEARS LLETHARGIC AT TIMES BUT AWAKENS EASILY TO VERBAL STIMULI. BED IN LOWEST POSITION AND CALL LIGHT WITHIN REACH.
--- NOTE | 2022-05-19 01:44 | NUR ---
PATIENT UPDATE PATIENT WITH CONTINUED INCREASED WOB UPON ASSESSMENT. LS WITH COARSE CRACKLES THROUGHOUT. PATIENT WITH RR OF 36-40/MINUTE. SPO2 CONTINUES TO BE >92% ON 2L VIA NC. CALL PLACED TO RT GRACE TO EVALUATE PATIENT. RT GRACE DISCUSSED WITH THIS RN THE NEED FOR BIPAP. THIS RN CALLED MD PETIT TO RECEIVE VERBAL ORDER FOR BIPAP/CPAP PROTOCOL ORDER. ORDER PLACED. RT EDWARDS AT BEDSIDE CURRENTLY SETTING UP BIPAP. PATIENT VERBALIZED UNDERSTANDING INTERVENTION AND STATED HE WAS IN AGREEMENT TO WEAR BIPAP MASK.
[2022-05-19 03:03] LABS: BASOPHILS PERCENT AUTO 1 % (0-2); EOSINOPHILS ABSOLUTE AUTO 0.02 K/mm3 (0.00-0.68); EOSINOPHILS PERCENT AUTO 0 % (0-6); Hemoglobin 11.2 g/dL (13.5-17.5); IMMATURE GRAN ABSOLUTE AUTO 0.69 K/mm3 (0.00-0.10); IMMATURE GRAN PERCENT AUTO 4 % (0-1); LYMPHOCYTES ABSOLUTE AUTO 0.86 K/mm3 (0.84-5.20); LYMPHOCYTES PERCENT AUTO 5 % (21-46); MONOCYTES PERCENT AUTO 5 % (4-13); Mean Corpuscular HGB 30.3 pg (26.0-34.0); Mean Corpuscular HGB Conc 33.9 g/dL (31.5-36.5); Mean Corpuscular Volume 89 fL (80-100); Mean Platelet Volume 10.8 fL (9.1-12.4); NEUTROPHILS ABSOLUTE AUTO 15.28 K/mm3 (1.96-9.15); NEUTROPHILS PERCENT AUTO 86 % (41-73); NRBC ABSOLUTE 0.04 K/mm3 (0.00-0.02); NRBC Auto 0.2 /100 WBC (0.0-0.2); Platelet Count 283 K/mm3 (150-400); RDW Coefficient Variation 14.1 % (11.7-14.2); White Blood Cell Count 17.75 K/mm3 (4.00-11.30)
[2022-05-19 03:19] LABS: Bun/Creatinine Ratio 50.5 (12.0-20.0); Creatinine, Blood 1.01 mg/dL (0.60-1.20); Magnesium, Blood 2.4 mg/dL (1.6-2.4); Phosphorus, Blood 3.1 mg/dL (2.5-4.9); Potassium, Blood 3.7 mmol/L (3.5-5.5)
--- NOTE | 2022-05-19 04:52 | NUR ---
SHIFT SUMMARY PATIENT WITH PROGRESSIVELY WORSENING SOB DURING THIS SHIFT. PATIENT CONTINUES TO NEED THE BIPAP. COARSE CRACKLES HEARD IN UPPER LOBES, DIMINISHED IN BASES. CALL PLACED TO MD PETIT REGARDING ANXIETY AND INABILITY FOR THE PATIENT TO KEEP BIPAP ON, ORDER FOR IV ATIVAN RECEIVED. SPO2 90-93% ON 4L VIA NC WITH RR 40. WHILE ON BIPAP RR DECREASES TO 28-30 WITH NOTABLE LESSENING OF LABORED BREATHING AND ACCESSORY MUSCLE USE. PATIENT GIVEN A BRIEF BREAK FROM THE BIPAP AROUND 0330 AND WAS STRUGGLING TO SPEAK D/T SOB. PATIENT HAS REMAINED ON THE BIPAP SINCE. PATIENT CONTINUES TO HAVE HTN WITH SBP 160-180'S, MEDICATING PER EMAR WITH GOOD RESULTS. BAH CATHETER REMAINS IN PLACE WITH APPROXIMATELY 1400MLS OF OUTPUT DURING THIS SHIFT, URINE NOTED TO BE VINAYAK/ORANGE IN COLOR WITH SEDIMENT. RECTAL TUBE REMAINS IN PLACE WITH LIQUID GREEN/BROWN STOOL. PATIENT BEING REPOSITIONED Q2HRS. BUE EDEMA NOTED. ALL EXTREMETIES ELEVATED ON PILLOWS. BED IN LOWEST POSITION AND CALL LIGHT WITHIN REACH. THIS RN WILL CONTINUE TO MONITOR UNTIL SHIFT CHANGE AT 0700.
[2022-05-19 13:11] LABS: Bicarbonate Venous 22.9 mmol/L (24.0-30.0); PCO2 Venous 26.2 mmHg (38-42)
--- NOTE | 2022-05-19 18:27 | NUR ---
SHIFT SUMMARY: PT CONTINUES LETHARGIC T/OUT DAY, AROUSES EASILY TO STAFF IN ROOM, QUICKLY FALLS BACK TO SLEEP. PT ON BIPAP UNTIL VBG RESULTS RECEIVED, PT TRANSITIONED TO NC AT 4 L/MIN, TOLERATING WELL, TACHYPNEA CONTINUES. ST ON MONITOR, RATE 110s-120s, EDEMA NOTED TO BLE AND BUE. PT MEDICATED x1 FOR HTN. PT WAKES LONG ENOUGH TO EAT DINNER, TOLERATES PUREE MEAL W/OCCASIONAL CLEARING OF THROAT. ABDOMEN CONTINUES FIRM/DISTENDED. RECTAL TUBE PATENT, DRAINING MINIMAL AMOUNT GREEN LIQUID STOOL. INDWELLING BAH PATENT, DRAINING TO GRAVITY. ORAL CARE PROVIDED Q4H AND PT REPOSITIONED Q2H. WHILE AWAKE THIS EVENING, PT ABLE TO ANSWER ORIENTATION QUESTIONS x4. PT SPOUSE, LIZA, UPDATED T/OUT DAY VIA TELEPHONE. WILL CONTINUE TO MONITOR AND TREAT ACCORDINGLY UNTIL CHANGE OF SHIFT.
--- NOTE | 2022-05-19 21:13 | NUR ---
ASSUMPTION OF CARE THIS RN ASSUMED CARE OF PATIENT AT 1900. REPORT TAKEN FROM KATERINE BONILLA. PATIENT SHOWING ST ON THE MONITOR WITH HR 110-130. PATIENT WTIH TACHYPNEA WITH RR 38-40 AT START OF SHIFT. ON 4L VIA NC WITH SPO2 >90%. SBP 150-160 AT THIS TIME. AFEBRILE. PATIENT IS ABLE TO ANSWER ALL QUESTIONS APPROPRIATELY, BUT IS LETHARGIC. DYSPNEIC AT REST AND WHILE TALKING. BUE CONTINUE TO BE EDEMATOUS. BAH CATHETER IN PLACE DRAINING VINAYAK COLORED URINE. RECTAL TUBE IN PLACE DRAINING DARK GREEN LIQUID BM. PATIENT'S EXTREMETIES BEING ELEVATED. REPOSTIIONING Q2HRS. MEDICATING PER EMAR. ENCOURAGING WATER INTAKE MENTATION ALLOWS. BED IN LOWEST POSITION AND CALL LIGHT WITHIN REACH.
--- NOTE | 2022-05-19 23:04 | NUR ---
PATIENT UPDATE CALL PLACED TO MD GREEN REGARDING PATIENT'S INCREASED HR OF 130'S, TEMP 100.7, AND CONTINUED INCREASED RESPIRATORY RATE OF 36-40. CXR OBTAINED. MD GREEN TO PCU TO COMPARE CXR TO PREVIOUS. MD GREEN REVIEWED CHART AND DISCUSSED WITH THIS RN AND COMMUNITY LIFE DIRECTOR ABOUT POSSIBLY ADDING ON ANOTHER ANTIBIOTIC AND PUTTING PATIENT BACK ON BIPAP FOR THE NIGHT. THIS RN TO BEDSIDE TO PUT BIPAP ON PATIENT. PATIENT TOLERATING WELL AT THIS TIME. RR 26-30. WILL MEDICATE PRN FOR ANXIETY PER EMAR. NO FURTHER ORDERS AT THIS TIME.
--- NOTE | 2022-05-19 23:59 | NUR ---
PATIENT UPDATE MD BROWN TO BEDSIDE TO ASSESS PATIENT AND DISCUSS PLAN OF CARE WITH THIS RN. VERBAL ORDERS TO KEEP PATIENT NPO D/T POSSIBLE ASPIRATION RISK AND TO KEEP PATIENT ON BIPAP. NO FURTHER ORDERS AT THIS TIME.
[2022-05-20 03:54] LABS: BASOPHILS ABSOLUTE AUTO 0.07 K/mm3 (0.00-0.23); BASOPHILS PERCENT AUTO 0 % (0-2); EOSINOPHILS PERCENT AUTO 1 % (0-6); Hematocrit 32.7 % (37.0-53.0); Hemoglobin 10.7 g/dL (13.5-17.5); IMMATURE GRAN ABSOLUTE AUTO 0.37 K/mm3 (0.00-0.10); IMMATURE GRAN PERCENT AUTO 2 % (0-1); LYMPHOCYTES ABSOLUTE AUTO 1.05 K/mm3 (0.84-5.20); LYMPHOCYTES PERCENT AUTO 6 % (21-46); MONOCYTES ABSOLUTE AUTO 0.68 K/mm3 (0.16-1.47); MONOCYTES PERCENT AUTO 4 % (4-13); Mean Corpuscular HGB Conc 32.7 g/dL (31.5-36.5); Mean Corpuscular Volume 92 fL (80-100); NEUTROPHILS ABSOLUTE AUTO 16.76 K/mm3 (1.96-9.15); NEUTROPHILS PERCENT AUTO 88 % (41-73); NRBC ABSOLUTE 0.07 K/mm3 (0.00-0.02); NRBC Auto 0.4 /100 WBC (0.0-0.2); Platelet Count 308 K/mm3 (150-400); RDW Coefficient Variation 14.4 % (11.7-14.2); RDW Standard Deviation 48.5 fL (35.1-46.3); Red Blood Cell Count 3.57 M/mm3 (4.30-5.90); White Blood Cell Count 19.03 K/mm3 (4.00-11.30)
[2022-05-20 04:54] LABS: Albumin, Blood 1.8 g/dL (3.4-5.0); Anion Gap 8 mmol/L (6-16); Blood Urea Nitrogen 55 mg/dL (8-24); Bun/Creatinine Ratio 49.5 (12.0-20.0); CO2, Blood 22 mmol/L (21-32); Calcium, Blood 8.1 mg/dL (8.5-10.1); Chloride, Blood 132 mmol/L (98-108); Creatinine, Blood 1.11 mg/dL (0.60-1.20); Glomerular Filtration Rate 71 (60-); Glucose, Blood 385 mg/dL (70-99); Phosphorus, Blood 3.5 mg/dL (2.5-4.9); Potassium, Blood 3.6 mmol/L (3.5-5.5); Sodium, Blood 162 mmol/L (136-145)
--- NOTE | 2022-05-20 05:04 | NUR ---
SHIFT SUMMARY SEE PREVIOUS NOTES ABOUT UPDATES REGARDING MD ORDERS AND RESPIRATORY STATUS. SINCE PREVIOUS NOTE PATIENT HAS BEEN ON BIPAP. RESPIRATORY RATE HAS IMPROVED AT 28-32. PATIENT STILL REQUIRING ATIVAN AT TIMES FOR ANXIETY. BP STABLE WITH SBP 150'S. ST ON MONITOR WITH HR 120'S SINCE BIPAP PLACEMENT. PATIENT DENIES PAIN AND ANXIETY AND STATES HE IS "TIRED". SPO2 CONTINUES TO BE >90%. CALL PLACED TO MD GREEN THIS AM REGARDING SODIUM LEVEL 162, MD TO PLACE ORDERS, WILL CONTINUE TO MONITOR. PATIENT BEING REPOSITIONED Q2HRS. BAH CATHETER PATENT AND DRAINING. SMALL OUTPUT IN RECTAL TUBE WITH DARK GREEN LIQUID BM. EXTREMETIES ELEVATED ON PILLOWS. TEMP 100.0 AT THIS TIME. PATIENT CONTINUES TO BE LETHARGIC BUT ANSWERS QUESTIONS APPROPRIATLEY AND RESPONDS TO VERBAL STIMULI. BED IN LOWEST POSITION AND CALL LIGHT WITHIN REACH. THIS RN WILL CONTINUE TO MONITOR UNTIL SHIFT CHANGE AT 0700.
--- NOTE | 2022-05-20 09:55 | NUR ---
PT ARRIVES FROM PCU AT 0844, TACHYPNEIC AND SLEEPY. ANSWERS QUESTIONS, BY HEAD NOD OR SHAKE. LUNG SOUNDS SHALLOW AND DIMINISHED, NO COUGH HEARD. ABD LARGE, SOFT AND ROUND, BACK WITH SCATTERED RASH, PT'S SKIN HOT TO THE TOUCH. HANDS PUFFY AND RED, IV INFUSING IN TIMOTHY PG, EVALUATED, ORDERS RECEIVED. NG TUBE PLACED IN RIGHT NARE, CHEST XR CONFIRMATION, 200ML FREE WATER GIVEN. PT PLACED BACK ON BIPAP, CONTINUES TACHYPNEIC, TACHYCARDIC AND INTERMITTENT AFIB/ ST. BP ELEV. SATS 95%. DENIES BELLY PAIN, BAH TO GRAVITY AND RECTAL TUBE DRAINING GREEN LIQUID RETURN. IV D5W @ 100ML/HR AND INSULIN GTT STARTED @ 4U/HR. HOURLY SUGARS TO TITRATE.
[2022-05-20 14:35] LABS: Source, Urine Foley catheter
[2022-05-20 14:49] LABS: Appearance, Urine Hazy (Clear); Bilirubin, Urine Neg (Neg); Blood, Urine 3+ (Neg); Color, Urine Yellow (P-Yellow); Glucose Qualitative, Urine 4+ (Neg); Ketones, Urine 1+ (Neg); Leukocyte Esterase, Urine 1+ (Neg); Nitrite, Urine Neg (Neg); Protein, Urine 1+ (Neg); Urobilinogen, Urine NORM (Normal)
[2022-05-20 15:03] LABS: Uric Acid Crystals Many /hpf
[2022-05-20 15:04] LABS: White Blood Cells, Urine 0-2 /hpf (0-5)
[2022-05-20 15:10] LABS: Triple Phosphate Crystals Mod /hpf
[2022-05-20 15:11] LABS: Bacteria Mod /hpf; Squamous Epithelial Cells Few /hpf (Few)
--- NOTE | 2022-05-20 18:12 | NUR ---
BILL HAS REMAINED RESPONSIVE ONLY TO VOICE, HE WILL NOD OR SHAKE HIS HEAD IN RESPONSE. HE CONTINUES ON THE BIPAP, RESPIRATIONS HAVE COME DOWN~ 20'S. LUNGS REMAIN CLEAR WITH SHALLOW RESPIRATIONS. HEART HEART IN THE 110'S, BP REMAINS ELEV 160'S/70'S. NG TUBE WITH VHP @ 15ML/HR, HE DENIES ANY PAIN OR TENDERNESS IN HIS ABDOMEN, ABLE TO PALPATE WITHOUT EVIDENCE OF GRIMACE OR PAIN. TEMP REMAINS 99-100.1. PT C/O BEING COOL, SKIN WARM TO THE TOUCH. EDEMATOUS HANDS AND FEET. MINIMAL MOVEMENT INITIATED BY PATIENT, VERY PASSIVE WITH TURNS. RECTAL TUBE WITH MINIMAL OUT, BAH WITH GOOD OUTPUT. URINE SENT FOR CULTURE, BLOOD CULTURES OBTAINED, NO SPUTUM FOR SPECIMEN THIS SHIFT. HERE MOST OF THE AFTERNOON, WITH DAUGHTER AND SOME BROTHERS. WILL CONTINUE TO MONITOR, TREAT AND ASSESS BLOOD SUGARS WHILE D5W INFUSING. REPORT TO NEXT SHIFT WHEN ABLE.
[2022-05-21 03:29] LABS: BASOPHILS ABSOLUTE AUTO 0.08 K/mm3 (0.00-0.23); BASOPHILS PERCENT AUTO 0 % (0-2); EOSINOPHILS ABSOLUTE AUTO 0.51 K/mm3 (0.00-0.68); EOSINOPHILS PERCENT AUTO 3 % (0-6); Hematocrit 32.3 % (37.0-53.0); Hemoglobin 10.3 g/dL (13.5-17.5); IMMATURE GRAN PERCENT AUTO 1 % (0-1); LYMPHOCYTES ABSOLUTE AUTO 1.23 K/mm3 (0.84-5.20); LYMPHOCYTES PERCENT AUTO 6 % (21-46); MONOCYTES ABSOLUTE AUTO 0.46 K/mm3 (0.16-1.47); MONOCYTES PERCENT AUTO 2 % (4-13); Mean Corpuscular HGB 29.7 pg (26.0-34.0); Mean Corpuscular HGB Conc 31.9 g/dL (31.5-36.5); Mean Corpuscular Volume 93 fL (80-100); Mean Platelet Volume 11.2 fL (9.1-12.4); NEUTROPHILS ABSOLUTE AUTO 16.91 K/mm3 (1.96-9.15); NEUTROPHILS PERCENT AUTO 87 % (41-73); NRBC ABSOLUTE 0.08 K/mm3 (0.00-0.02); NRBC Auto 0.4 /100 WBC (0.0-0.2); Platelet Count 271 K/mm3 (150-400); RDW Coefficient Variation 14.7 % (11.7-14.2); Red Blood Cell Count 3.47 M/mm3 (4.30-5.90); White Blood Cell Count 19.39 K/mm3 (4.00-11.30)
[2022-05-21 04:28] LABS: Albumin, Blood 1.7 g/dL (3.4-5.0); Anion Gap 2 mmol/L (6-16); Blood Urea Nitrogen 46 mg/dL (8-24); Bun/Creatinine Ratio 44.2 (12.0-20.0); CO2, Blood 26 mmol/L (21-32); Calcium, Blood 7.8 mg/dL (8.5-10.1); Chloride, Blood 134 mmol/L (98-108); Creatinine, Blood 1.04 mg/dL (0.60-1.20); Glomerular Filtration Rate 77 (60-); Glucose, Blood 203 mg/dL (70-99); Phosphorus, Blood 3.5 mg/dL (2.5-4.9); Potassium, Blood 3.3 mmol/L (3.5-5.5); Sodium, Blood 162 mmol/L (136-145)
--- NOTE | 2022-05-21 06:52 | NUR ---
PT AOX3-4, MINIMALLY VERBAL. FOLLOWS COMMANDS AND MOVES ALL EXTREMITIES BUT VERY WEAK. ST AND HYPERTENSIVE, REQUIRING PRN HYDRALAZINE AND LABETOLOL TO KEEP SYS <170. TMAX 100.6, PRN TYLENOL GIVEN X2. BIPAP WITH 5L BLEED IN. OGT WITH TRICKLE FEED RUNNING. RECTAL TUBE AND BAH IN PLACE. D5W AND INSULIN GTT INFUSING. NA 162, DR NOTIFIED AND ABX CHANGED FROM BEING IN NS TO D5.
--- NOTE | 2022-05-21 07:15 | NUR ---
Assumed care of pt at 0700. Report received from Medardo BONILLA. Pt is alert with verbal stimulus. Answers yes/no questions by nodding his head, follows commands. Pt is pleasant and cooperative with care. Agreeable with treatment plan. Pt is on BiPAP 12/6 and 5 LPM. SpO2 90% or greater.
--- NOTE | 2022-05-21 07:15 | NUR ---
SKIN Pt has rash that is diffuse through torso and noted that area where dressing was for subclavian line is particularly red. Discussed with charge auditor that pt may be allergic to chlorhexidine. Pt is no longer receiving chlorhexidine baths since central line removal. Plan to give to thorough bath today with soap/water. Also plan to replace tegaderm CHG on powerglide with biopatch. Chlorhexidine added to allergy list.
--- NOTE | 2022-05-21 08:30 | NUR ---
Dr Joseph in to see patient. Pt's spouse and daughter are at bedside. Updated by provider.
--- NOTE | 2022-05-21 12:00 | NUR ---
Pt removed BiPAP. Currently on room air. SpO2 90% or greater.
--- NOTE | 2022-05-21 14:28 | NUR ---
Dr Covington has been in to see patient and states plan to sign off. Placed consult to Dr Arceo to assist with management of hypernatremia.
--- NOTE | 2022-05-21 18:08 | NUR ---
SUMMARY Neuro/Musc/Psych: Pt alert most afternoon. Speaking in 4-5 word sentences. Seems receptive to education. Follows directions. Verbalizes needs. Overall pleasant and cooperative with care. Barrel Tester came to visit today and patient told ring barker operator that he had pancreatitis. Pt did pull out his own NG tube today after education about it's purpose, however. Pt up in recliner for approx 4 hours today. Worked with PT/OT/ST. Many times, asked this RN to assist him to forward in the recliner and pt practiced sitting upright without the back to support himself. Febrile, currently 100.6. Managed by reducing ambient temperature and removing excess bed linens. ADLS: Q2H repositions, pt is total care. Oral care Q4H. Pt received bedbath today with fresh bed linens. Resp: On BiPAP as start of shift. Pt pulled it off. He has been on room air ever since. Currently sats are 93%. Lungs clear, diminished t/o. Minimal coughing, dry. Cardiac: Was sinus tachycardia for most of shift with rate 110-120. Pt received 20 mg labetalol for HTN and rate reduced to 90. Sensation, pulses, capillary refill equal BUE/BLE. R arm more edematous than left- this site is distal to previous axillary art line. Dr Covington assessed site and determined it is stable. GI: Pt removed NG tube. This RN, charge RNs Monique and Isaak made several attempts with 16 FR NG and dobhoff tube but were unsuccessful. Pt remains without gastric tube at this time. Dr Joseph aware. Rectal tube remains in place, patent and draining green output. : Excellent urine output through johnston this shift. Anila urine. Nephrology consulted and prescribed D5 drip to be increased to 200 mL per hour. Skin: No changes to assessment in previous note. Rash on torso photographed, as well as irritated skin from central line dressing and bruising to RUE. Family: Pt's spouse and daughter in to see patient. Updated by Turner Joseph and Adria.
[2022-05-22 04:38] LABS: Hematocrit 30.8 % (37.0-53.0); Mean Corpuscular HGB Conc 32.5 g/dL (31.5-36.5); Mean Corpuscular Volume 93 fL (80-100); Mean Platelet Volume 11.3 fL (9.1-12.4); NRBC ABSOLUTE 0.04 K/mm3 (0.00-0.02); NRBC Auto 0.3 /100 WBC (0.0-0.2); Platelet Count 217 K/mm3 (150-400); RDW Coefficient Variation 14.4 % (11.7-14.2); RDW Standard Deviation 48.5 fL (35.1-46.3); Red Blood Cell Count 3.33 M/mm3 (4.30-5.90); White Blood Cell Count 14.78 K/mm3 (4.00-11.30)
[2022-05-22 04:53] LABS: Albumin, Blood 1.5 g/dL (3.4-5.0); Anion Gap 3 mmol/L (6-16); Blood Urea Nitrogen 40 mg/dL (8-24); Bun/Creatinine Ratio 35.1 (12.0-20.0); CO2, Blood 25 mmol/L (21-32); Calcium, Blood 7.4 mg/dL (8.5-10.1); Chloride, Blood 126 mmol/L (98-108); Creatinine, Blood 1.14 mg/dL (0.60-1.20); Glomerular Filtration Rate 69 (60-); Glucose, Blood 225 mg/dL (70-99); Phosphorus, Blood 3.3 mg/dL (2.5-4.9); Potassium, Blood 3.1 mmol/L (3.5-5.5); Sodium, Blood 154 mmol/L (136-145)
--- NOTE | 2022-05-22 05:28 | NUR ---
SHIFT SUMMARY: 1929- Upon assessment, patient noted to be drowsy and confused, unable to tell me where he is or his birthday. Speech is mumbled and slow. Follows simple commands, but extremely weak. His oxygen saturations were around 90% on room air, so I placed him on 2L nasal cannula for sats greater than 95%. He is now weaned down to 1L. Did not require BIPAP overnight. Around 2199, I replaced the small bore feeding tube, which the patient tried to remove. Order for wrist restraints received. Per Dr. Cooney, feeding tube okay to use. Free water flushes and tube feeding started. Around 399, patient's mental status is somewhat improved. He is more alert and stronger, able to lift arms and legs. Patient bathed and rectal tube removed due to leakage of semi-formed stool. Morning labs showed that his sodium decreased from 161 to 154 in a six hour period, and potassium dropped to 3.1. Dr. Cooney notified and orders received. D5W rate decreased from 200 to 75ml/hr. To compensate, I decreased insulin rate from 4 units/hr to 2 units/hr, despite CBG in the 190s.
[2022-05-22 10:20] LABS: Bun/Creatinine Ratio 34.8 (12.0-20.0); Calcium, Blood 7.4 mg/dL (8.5-10.1); Creatinine, Blood 1.15 mg/dL (0.60-1.20); Potassium, Blood 3.6 mmol/L (3.5-5.5)
--- NOTE | 2022-05-22 10:29 | NUR ---
CARE OF PT ASSUMED AT 0700. PT SLEEPING, AWAKENS TO VOICE. ORIENTED TO SELF, STATES HE IS IN [place], UNABLE TO STATE WHERE EVEN AFTER ANSWER GIVEN. VERY SLOW TO RESPOND. ABLE TO POLLUTION CONTROL CHEMIST HANDS TO COMMAND VERY WEAKLY. PT INCONTINENT OF LIQUID GREEN/YELLOW STOOL; LARGE AMT X2. RECTAL TUBE REPLACED. TF AT GOAL 25CC/HR, FREE WATER 200 Q4. INSULIN GTT BETWEEN 3 AND 4UNITS/HR THIS AM. D5 AT 75. SODIUM INITIALLY 154, AND IS NOW 155. RESTRAINTS REMOVED THIS AM PT CALM/NOT PULLING AT TUBES AND FAMILY AT BEDSIDE. K+ INFUSING. MILD HTN W LOW GRADE TEMP.
--- NOTE | 2022-05-22 14:19 | NUR ---
ZOOM EVALUATION COMPLETED BY DR ROSE. D5 INCREASED TO 125CC/HR. REPEAT LABS TO BE DRAWN AT 1700.
--- NOTE | 2022-05-22 16:26 | NUR ---
DR KELLY CALLED W NA++ RESULTS, ORDERS TO KEEP D5 AT THE 125CC/HR, CONTINUE WITH THE FREE WATER AT 200CC Q4HRS. LABETALOL 20MG IV GIVEN FOR SBP >170.PT AWAKENS TO VOICE, DENIES COMPLAINTS, RESPONDING FASTER TO QUESTIONS, SLIGHTLY MORE ALERT WHEN AWOKEN FROM SLEEP. INSULIN REMAINS AT 4UNITS/HR. PT'S UPDATED VIA PHONE CALL. O2 REMOVED AT 1400, SATS 94% ON RA. PT REMAINS OUT OF RESTRAINTS.
[2022-05-23 04:30] LABS: Bun/Creatinine Ratio 35.2 (12.0-20.0); Calcium, Blood 7.3 mg/dL (8.5-10.1); Creatinine, Blood 1.05 mg/dL (0.60-1.20); Potassium, Blood 3.1 mmol/L (3.5-5.5)
--- NOTE | 2022-05-23 04:45 | NUR ---
CALLED DR. BROWN REGARDING LOW POTASSIUM, ALL LAB VALUES GIVEN. NEW ORDER FOR KCL IV OBTAINED.
--- NOTE | 2022-05-23 05:43 | NUR ---
SHIFT SUMMARY: PT REMAINS ON D5W AT 125ML/HR AND INSULIN 4 UNITS. SODIUM LEVELS HAVE DROPPED TO ONLY 153 THIS SHIFT. BLOOD SUGARS HAVE MAINTAINED BETWEEN 180-200. CURRENTLY RECEIVING KCL 20MEQ OF TOTAL OF 40MEQ ORDERED FOR POTASSIUM OF 3.1. BLOOD PRESSURE HAS RETURNED TO NORMAL T/O THE NIGHT. HR HAS AVERAGE 80-110. CURRENTLY ON 2L NC FOR FEELINGS OF SOB ONLY, SATS HAVE MAINTAINED >92%. GENERALIZED EDEMA ALL OVER +3 IN EXTREMITIES. TF REMAINS AT 25ML/HR WITH TOTAL OF 287, AND 660 OF FREE WATER INFUSED. BAH OUTPUT 1000, URINE VINAYAK WITH SEDIMENT. RECTAL TUBE OUTPUT 1050, YELLOWISH BROWN LIQUID STOOL. PT IS MORE ALERT AND ABLE TO ANSWER QUESTIONS, DISORIENTED TO DATE AND TIME ONLY.
--- NOTE | 2022-05-23 08:41 | NUR ---
CARE OF PT ASSUMED AT 0700. PT SLEEPING, AWAKENS TO VOICE. MUCH MORE ALERT TODAY. DENIES C/O PAIN BUT C/O NAUSEA. ZOFRAN GIVEN WITHOUT MUCH RELIEF, BUT PT HAS NOT VOMITED AND IS SLEEPING AGAIN. TF PLACED ON HOLD AND PER TUBE MEDS HELD DUE TO NAUSEA. WILL RESUME IN 2 HOURS IF PT IMPROVED. BOWEL TONES HAVE DECREASED FROM YESTERDAY. STOOL SENT FOR CDIFF. HR MORE IRREGULAR W MULTIPLE PAC'S, RATE LOW 100. BP STABLE. LOW GRADE TEMP 100.8. O2 REMOVED, SATS 95%. FAMILY AT BEDSIDE. DR FONTENOT IN TO SEE PT THIS AM, GIVEN FULL UPDATE.
--- NOTE | 2022-05-23 10:09 | NUR ---
PT STATES NAUSEA HAS RESOLVED. TUBE FEEDS RESUMED. PT GIVEN FULL BED BATH, OOB TO CHAIR USING LIFT. INSULIN REMAINS AT 4UNITS/HR, D5 AT 125CC/HR.
[2022-05-23 10:15] LABS: C DIFFICILE DNA NEGATIVE (Negative)
--- NOTE | 2022-05-23 10:37 | NUR ---
SODIUM OF [address] KELLY, ORDERS RECEIVED TO DECREASE D5 TO 50CC/HR.
--- NOTE | 2022-05-23 12:37 | NUR ---
PT WORKED WITH PHYSICAL THERAPY FOR OVER 30MIN, TOLERATED WELL. TEMP UP TO 101.3, TYLENOL GIVEN VIA DOBHOFF. INSULIN AT 3UNITS.
--- NOTE | 2022-05-23 13:30 | NUR ---
ZOOM EVALUATION COMPLETED BY DR KELLY; NO NEW ORDERS. PT PLACED BACK TO BED WITH LIFT. NEW TUBE FEED HUNG; TUBING CHANGED. INSULIN DECREASED TO 2UNITS/HR.
--- NOTE | 2022-05-23 20:38 | NUR ---
ASSUMED CARE. AOX3, STILL HAS DIFFICULT TIME WITH DATE. DENIES PAIN. BLOOD SUGARS HOLDING IN THE 180'S, INSULIN DRIP IS AT 2 UNITS, TKO OF 10L AND D5W AT 50ML. 3+ EDEMA NOTED IN EXTREMTITES, SCD'S ARE IN PLACE. HANDS SWOLLEN AND TIGHT, UNABLE TO MAKE FIST. MASSAGED HANDS TO HELP WITH CIRCULATION. DENIES DISCOMFORT IN THEM. ELEVATED THEM ON PILLOWS. HR TACHY IN THE 110'S SINUS ARRYTHMIA WITH PVC'S. BP STABLE. TEMP 101.4. WILL MEDICATE WITH TYLENOL. REPOSITIONED. RECTAL TUBE DRAINING, NO LEAKAGE. BAH PATENT.
[2022-05-24 05:23] LABS: Bun/Creatinine Ratio 30.5 (12.0-20.0); Calcium, Blood 7.7 mg/dL (8.5-10.1); Creatinine, Blood 1.05 mg/dL (0.60-1.20); Potassium, Blood 3.2 mmol/L (3.5-5.5)
--- NOTE | 2022-05-24 06:14 | NUR ---
SHIFT SUMMARY: PT REMAINS ON INSULIN DRIP 3 UNITS WITH BLOOD SUGARS AVERAGE 180-210. D5W CONTINUES AT 50ML/HR. TKO 10ML/HR. NO CHANGE IN TUBE FEED. DENIED NAUSEA. RECTAL TUBE OUTPUT 900ML LIQUID STOOL. BAH OUTPUT 850 VINAYAK SEDIMENT URINE. LS DIM IN BASES, DEVELOPED MORE OF A COUGH THAT IS STARTING TO SOUND MOIST BUT IS NOT PRODUCTIVE. OXYGENATION REMAINS THE SAME. EDEMA CONTINUES TO BE GENERALIZED AND IS NOT DECREASED. POWERGLIDES BOTH DO NOT DRAW AND LAB HAS HAD DIFFICULTY DRAWING DUE TO THE EDEMA. HR 100-110 SINUS ARRYTHMIA WITH MULTIFORM PVC'S. RASH IS STILL PRESENT ON BACK AND SIDES OF TRUNK. HE HOPES TO PASS SWALLOW EVAL HE CONTINUES TO WANT WATER.
--- NOTE | 2022-05-24 06:46 | NUR ---
LABETOL GIVEN FOR ELEVATION IN BP ABOVE THE 170'S. POTASSIUM SUPPLEMENT HUNG. BP NOW 131/62 AND HR 85.
--- NOTE | 2022-05-24 09:07 | NUR ---
Assumed care for pt at 0700. Dennise A&Ox4, GCS 15, on 2 lpm o2 via NC at night, normally on RA for dayshift. Dobhoff in L nare w/ Vital HP @ goal 25 ml/hr w/ q4hr 200 ml water flushes. D5W @ 50 ml/hr and Insulin gtt @ 3 units/hr and replacement K+ 40 mEq currently infusing. Bilateral Powerglides in upper arms, both flush easily but have not been able to pull blood x2 days. Juan and rectal tube in place. Plan is for Speech to perform anotehr swallow study.
--- NOTE | 2022-05-24 12:00 | NUR ---
Placed pt into recliner, took x2 staff and used the ceiling lift. Pt tolerated move well and advised he was "more comfortable."
--- NOTE | 2022-05-24 18:21 | NUR ---
Pt remains ICU status. Still receiving D5W @ 50 ml/hr and Insulin gtt @ 3 units/hr. Vital HP @ goal of 25 ml/hr w/ q4hr 200 ml water flushes through Dobhoff in left nare. Pt spent 6 hours in the recliner and worked with PT/OT. This morning, speech performed another swallow eval which pt failed. They changed his oral care to q4 hours. Plan is for pt to remain on D5W and insulin gtt overnight and reassess Na+ levels in AM w/ Dr. Hinton.
--- NOTE | 2022-05-24 20:00 | NUR ---
ASSUMPTION OF CARE ASSUMED CARE AT 1900. PATIENT LETHARGIC, BUT ORIENTED X3. DISORIENTED TO TIME. FOLLOWS COMMANDS. DENIES PAIN. MONITOR SHOWING SINUS ARRHYTHMIA, HR 100S. DESATS WHILE SLEEPING, AND PLACED ON 2L NC. FREE WATER FLUSH INFUSING VIA DOBHOFF FOR MANAGEMENT OF HYPERNATREMIA, IN ADDITION TO IV DEXTROSE AND INSULIN. CLEANED AND REPOSITIONED IN BED. BAH CARE AND ORAL CARE COMPLETED.
[2022-05-25 04:03] LABS: Albumin, Blood 1.4 g/dL (3.4-5.0); Anion Gap 6 mmol/L (6-16); Blood Urea Nitrogen 27 mg/dL (8-24); Bun/Creatinine Ratio 28.3 (12.0-20.0); CO2, Blood 21 mmol/L (21-32); Calcium, Blood 7.5 mg/dL (8.5-10.1); Chloride, Blood 119 mmol/L (98-108); Creatinine, Blood 0.95 mg/dL (0.60-1.20); Glomerular Filtration Rate 86 (60-); Glucose, Blood 162 mg/dL (70-99); Phosphorus, Blood 2.7 mg/dL (2.5-4.9); Potassium, Blood 3.4 mmol/L (3.5-5.5); Sodium, Blood 146 mmol/L (136-145)
--- NOTE | 2022-05-25 06:29 | NUR ---
SHIFT SUMMARY OVERNIGHT, PT ORIENTED X3-4. FOLLOWS COMMANDS. GUADALUPE WEAKLY. REQUIRED 2L NC. INTERMITTENTLY TACHYPNIC. HAS LOOSE, NON PRODUCTIVE, WEAK COUGH. MONITOR VARYING BETWEEN SINUS TACHYCARDIA AND SINUS ARRHYTHMIA, HR 100-110. REQUIRED HYDRALAZINE X1 OVERNIGHT FOR SBP >160. OTHERWISE, SBP 130-150S. CONTINUES ON TRICKLE TUBEFEEDS, WITH Q4 200CC FLUSH VIA DOBHOFF. NPO. 500CC OUT PER RECTAL TUBE. BAH CATHETER PATIENT, ADEQUATE URINE OUTPUT. CONTINUES ON INSULIN @ 3U/HR AND D5W @ 50CC/HR. SODIUM ON AM LABS WAS 146.
--- NOTE | 2022-05-25 10:58 | NUR ---
SHIFT ASSESSMENT ASSUMED CARE OF PT @ 0700. PT ALERT TO PERSON, PLACE, AND YEAR. FOLLOWING COMMANDS, COMMUNICATING NEEDS. REMAINS EXTREMELY WEAK. WORKED WITH OT THIS AM FOR APPROXIMATELY 30 MINUTES, UNABLE TO STAND AND TRANSFER AT THIS TIME. INSULIN GTT AND D5 OFF AROUND 0900. TF CONTINUES @ 25ML/HR c Q4HR 200ML FLUSHES. RECTAL TUBE IN PLACE DRAINING LOOSE TO LIQUID STOOL. TEMP PROBE BAH PATENT, DRAINING VINAYAK URINE, TEMP OF 100.5. FULL BED BATH COMPLETE, PT MOVED TO BEDSIDE CHAIR WITH LIFT.
--- NOTE | 2022-05-25 18:23 | NUR ---
SHIFT SUMMARY PT REMAINS ALERT AND ORIENTED, FOLLOWING COMMANDS. QUICKER TO RESPOND THIS EVENING, VOICE IS ALSO BECOMING STRONGER. CONTINUES TO HAVE GENERALIZED WEAKNESS BUT TRIES TO HELP WITH TURNS. WORKED WITH PT THIS AFTERNOON BUT UNABLE TO TOLERATE MUCH ACTIVITY. TF INFUSING @ 45ML/HR, GOAL OF 60ML/HR c Q4H FLUSHES OF 300ML. RECTAL TUBE DRAINING BROWN, LIQUID STOOL. TEMP PROBE BAH DRAINING VINAYAK URINE WITH SEDIMENT, T MAX OF 101. MEDICATED WITH PT TYLENOL. NO OTHER ACUTE CHANGES.
--- NOTE | 2022-05-25 19:30 | NUR ---
ASSUMED CARE PATIENT LYING IN BED QUIETLY WITH EYES CLOSED. ANTIBIOTIC INF. VHP @ 40ML/HR WITH GR 60ML/HR; 300ML Q4H FREE WATER FLUSHES. DOBHOFF IN PLACE AND SECURE. RECTAL TUBE AND BAH PATENT AND DRAINING TO GRAVITY. NO VISITORS AT BEDSIDE. REPORT COMPLETED WITH IRENE CHRISTOPHER
[2022-05-26 04:01] LABS: Bun/Creatinine Ratio 30.2 (12.0-20.0); Calcium, Blood 7.7 mg/dL (8.5-10.1); Creatinine, Blood 1.06 mg/dL (0.60-1.20)
--- NOTE | 2022-05-26 04:20 | NUR ---
INSULIN ORDERS PATIENT GLUCOSE 351 ON AM LABS. CALL MADE TO DR. BROWN AND ORDERS RECEIVED FOR LANTUS 15 UNITS SC NOW, THEN BID STARTING IN THE AM.
--- NOTE | 2022-05-26 06:28 | NUR ---
SHIFT SUMMARY PATIENT SLEPT OFF AND ON THROUGHOUT SHIFT. TMAX 101F-COOLED WITH FAN AND COOL WASH CLOTH TO 100F. PATIENT ASSISTED WITH TURNS AND CARES WITH GUIDANCE. VHP INCREASED TO GR 60ML/HR WITH NO SIGNS OF GI INTOLERANCE. TEMP BAH PATENT AND DRAINED 1280ML DARK ORANGE/CLOUDY URINE. RECTAL TUBE DRAINED 250ML DARK GREEN/LIQUID/MUCOUSY STOOL. BLOOD SUGARS HIGH DURING SHIFT. LANTUS 10 UNITS X 2 AND HUMALOG 6 UNITS X 2 GIVEN DURING SHIFT. NO OTHER CHANGES DURING SHIFT.
--- NOTE | 2022-05-26 08:00 | NUR ---
INITIAL ASSESSMENT PATIENT ANSWERED ALL ORIENTATION QUESTIONS CORRECTLY, ALTHOUGH DOES HAVE BRIEF PERIODS OF CONFUSION OCCASIONALLY. PATIENT HAS FLAT AFFECT. PATIENT WEAK BUT ABLE TO MOVE ALL EXTREMITIES. PATIENT HAS TEMP OF 99.8 DEGREES FAHRENHEIT THIS AM. PATIENT DENIES PAIN. PATIENT ON 2 L NC TO KEEP SATS 90% AND GREATER. PATIENT FEELS SOB WITH EXERTION. LUNGS CLEAR IN UPPER LOBES AND DIMINISHED IN LOWER LOBES. PATIENT HAS WEAK, DRY COUGH. PATIENT IN SR TO ST, HR 80S TO 1-TEENS. SBP IN THE 180; PRN IV LABETALOL GIVEN AND SBP DOWN TO 120S. EDEMA NOTED TO BILAT HANDS, BUES AND BLES. ABDOMEN DISTENDED, SOFT, WITH NORMOACTIVE BOWEL SOUNDS NOTED. VHP INFUSING AT GOAL RATE OF 60 MLS/ HOUR WITH 300 ML WATER FLUSH Q4H. RECTAL TUBE DRAINING GREEN, LIQUID STOOL. BAH DRAINING YELLOW COLORED URINE. PURPLE, NONBLANCHEABLE AREA NOTED TO R BUTTOCK. SCABS NOTED TO FACE. SCATTERED BRUISING NOTED. NS TKO. BED LOW, CALL LIGHT IN REACH. WILL CONTINUE TO MONITOR PATIENT FREQUENTLY THROUGHOUT SHIFT.
--- NOTE | 2022-05-26 08:16 | NUR ---
DR. FONTENOT UPDATED ON PATIENT STATUS. INFORMED THAT BLOOD SUGARS CLIMBING AND THAT LANTUS INCREASED ON PIPE LINER. INFORMED THAT PATIENT HAS REMAINED HYPERTENSIVE AND THAN PRN LABETALOL GIVEN THIS AM. INFORMED THAT PATIENT TAKES 2 BP MEDS AT HOME THAT ARE NOT ORDERED. STATED HE WILL LOOK AT. NO ORDERS RECEIVED AT THIS TIME.
--- NOTE | 2022-05-26 12:35 | NUR ---
PATIENT HAS TEMP OF 99.3 DEGREES FAHRENHEIT. HR IN THE 90S. SBP 130S. BLOOD SUGAR 307. PATIENT SATTING 90% AND GREATER ON RA. NO OTHER ACUTE CHANGES TO NOTE ON AT THIS TIME. WILL CONTINUE TO MONITOR.
--- NOTE | 2022-05-26 13:25 | NUR ---
SHIFT SUMMARY PATIENT REMAINED ALERT AND ORIENTED. FLAT AFFECT. PATIENT LETHARGIC. VOICE SOFT. WEAK BUT ABLE TO MOVE ALL EXTREMITIES. PATIENT UP TO CHAIR WITH LIFT. PATIENT WORKED WITH OT THIS AM BUT DID NOT WANT TO WORK WITH PT IN MORNING. PATIENT HAS HAD SLIGHT TEMP. NO COMPLAINTS OF PAIN. PATIENT DECREASED FROM 2 L NC TO RA. PATIENT REMAINED SR TO ST. PATIENT GIVEN PRN LABETALOL THIS AM FOR HTN. COZAAR ADDED TO EMAR THIS SHIFT AND GIVEN THIS AM. RECTAL TUBE REMAINS DRAINING GREEN COLORED, LIQUID STOOL. BAH REMAINS DRAINING YELLOW COLORED URINE. NO CHANGES TO SKIN NOTED. NS TKO. PATIENT HISTORY DOCUMENTATION COMPLETED THIS SHIFT. BLOOD SUGARS 299 AND 307. FAMILY AT BEDSIDE. PATIENT WILL BE TRANSFERRING TO MEDICAL FLOOR SHORTLY.
--- NOTE | 2022-05-26 14:04 | NUR ---
PATIENT TAKEN BY CHAIR TO MEDICAL FLOOR. FAMILY FOLLOWING WITH BELONGINGS. TRANSFER COMPLETE.
--- NOTE | 2022-05-26 15:53 | NUR ---
TRANSFER PATIENT TRANSFERRED FROM ICU03. PATIENT SETTLED INTO ROOM. PATIENT ORIENTED TO CALL LIGHT AND TV CONTROL. PATIENT FAMILY AT BEDSIDE DURING TRANSFER. PATIENT IN RECLINER. PATIENT REQUESTING NAP AND TO GET IN BED, PATIENT USES LIFT. SKIN CHECK COMPLETE. CONTINUOUS TUBE FEEDING RESTARTED. IV ABX RUNNING. PATIENT DENIES ADDITIONAL NEEDS.
--- NOTE | 2022-05-26 18:10 | NUR ---
SHIFT SUMMARY PATIENT DENIES PAIN AND NAUSEA. PATIENT REPORTS SHORTNESS OF BREATH. PATIENT BREATHING AT 30/MIN. PATIENT ON ROOM AIR SATURATING AT 95%. PATIENT IS A LIFT FOR TRANSFERS. PATIENT HAS DOBBHOFF IN RIGHT NOSTRIL. TUBE FEEDING RUNNING CONTINUOUS AT 60MLS/HR. 300ML WATER FLUSH EVERY 4 HOURS. PATIENT HAS TEMP BAH, PATENT AND DRAINING TO GRAVITY. RECTAL TUBE IN PLACE, OUTPUT IS BROWN LIQUID. PATIENT HAS POWERGLIDE IN BOTH UPPER ARMS, NEITHER OF THEM DRAW. PATIENT DIET INCREASED TO PUREE, NECTAR THICK VIA SPOON, MEDS CRUSHED IN APPLESAUCE, FEEDER, NO STRAWS. THIS RN FED PATIENT DINNER. PATIENT HAS PUREE MASHED POTATOES, PEAS, SIRLOIN TIPS, AND PEACHES. PATIENT ATE 3 BITS OF EACH BEFORE BECOMING TOO FATIGUED TO CONTINUE. PATIENT ALSO TOLERATED 3 SPOONFULS OF NECTAR WATER. PATIENT DID CLEAR HIS THROAT 3 TIMES DURING DINNER AND ENDORSED 2 COUGHS. PATIENT AND DAUGHTER AT BEDSIDE IN AFTERNOON. PATIENT A&O X4. PATIENT TOLERATED NEW DIET WELL. PATIENT IS PLEASANT AND COOPERATIVE WITH CARE.
[2022-05-26 20:30] LABS: Albumin, Blood 1.6 g/dL (3.4-5.0); Albumin/Globulin Ratio 0.4 (0.8-1.8); Bilirubin, Total 0.6 mg/dL (0.1-1.0); Bun/Creatinine Ratio 33.1 (12.0-20.0); Calcium, Blood 8.3 mg/dL (8.5-10.1); Creatinine, Blood 0.94 mg/dL (0.60-1.20); Globulin, Blood 4.3 g/dL (2.2-4.0); Potassium, Blood 3.5 mmol/L (3.5-5.5); Total Protein, Blood 5.9 g/dL (6.4-8.2)
[2022-05-26 20:42] LABS: Base Excess Venous -2.9 mmol/L; Bicarbonate Venous 22.3 mmol/L (24.0-30.0); PCO2 Venous 34.7 mmHg (38-42); pH Blood Venous 7.41 (7.34-7.37)
[2022-05-27 05:38] LABS: Hematocrit 28.1 % (37.0-53.0); Hemoglobin 9.1 g/dL (13.5-17.5); Mean Corpuscular HGB 30.2 pg (26.0-34.0); Mean Corpuscular HGB Conc 32.4 g/dL (31.5-36.5); Mean Corpuscular Volume 93 fL (80-100); Mean Platelet Volume 12.4 fL (9.1-12.4); Platelet Count 119 K/mm3 (150-400); RDW Coefficient Variation 13.4 % (11.7-14.2); RDW Standard Deviation 45.4 fL (35.1-46.3); Red Blood Cell Count 3.01 M/mm3 (4.30-5.90); White Blood Cell Count 5.61 K/mm3 (4.00-11.30)
--- NOTE | 2022-05-27 07:44 | NUR ---
SHIFT SUMMARY NOC PT A/O X 3-4. PT HAD ELEVATED BP AND HR AND WAS TREATED PER EMAR. PT CBG ALSO WAS ELEVATED AND HOSPITALIST WAS NOTIFIED OF CHANGE IN PT STATUS AND ORDERED A CMP AND VBG PANELS. PANEL CAME BACK NEGATIVE FOR DKA. PT IS ON TELE RUNNING ST @ 102 BPM. PT HAS BL PG THAT DO NOT DRAW. PT HAD DOBHOFF IN LEFT NARE THAT PT UNINTENTIONALL PULLED PARTIALLY OUT. PT DIET ORDER WAS CHANGED EARLIER IN DAY AND HOSPITALIST WAS NOTIFIED AND TUBE FEEDING WAS DC. PT IS TOLERATING PO INTAKE BUT GETS TIRED EASILY. PT CBG AT 0000 REQUIRED 10 UNITS OF COVERAGE AND 0600 REQUIRED 4 UNITS OF COVERAGE. PT BP AND HR AND CBG STABILIZED OVER COURSE OF SHIFT. PT IS CURRENTLY RESTING WITH BED IN LOWEST POSITION AND CALL LIGHT WITHIN REACH.
[2022-05-27 16:22] LABS: Vancomycin, Trough 18.9 ug/mL (5.0-10.0)
[2022-05-27 16:54] LABS: Bun/Creatinine Ratio 31.9 (12.0-20.0); Calcium, Blood 7.9 mg/dL (8.5-10.1); Creatinine, Blood 0.91 mg/dL (0.60-1.20); Potassium, Blood 3.9 mmol/L (3.5-5.5)
--- NOTE | 2022-05-27 17:20 | NUR ---
SHIFT SUMMARY PT A&OX4 AND IN PLEASENT MOOD T/O SHIFT. FAMILY IN TO SEE PT T/O SHIFT. HTN/TACHY NOTED T/O SHIFT-COZAAR ADJUSTED. TOLERATING PUREE DIET, NECAR THICK. TELE IN PLACE, SR. WORKED W/ PT/OT-BEDREST T/O SHIFT, LIFT TRANSFER. BARIUM SWALLOW COMPLETE THIS SHIFT.
--- NOTE | 2022-05-28 03:46 | NUR ---
SHIFT SUMMARY NOC PT A/O X 4. CONFUSED AT TIMES. PT ABLE TO TOLERATE RX IN SUGAR FREE PUDDING WITHOUT ASPIRATING. PT CBG WAS 239 @ 0000 AND RECEIVED 4 UNITS PER S/S. PT BP WAS ELEVATED AGAIN AND HYDRALAZINE 10 MG GIVEN WITH NO EFFECT. HOSPITALIST NOTIFIED AND ORDER FOR LABETOLOL OBTAINED AND 10 MG GIVEN AND BP IMPROVED TO 149/64. PT RECTAL TUBE PATENT AND INTACT WITH SLIGHT LEAKING WITH LIQUID BROWN OUTPUT. PT BAH INTACT DRAINING YELLOW URINE TO GRAVITY. PT IS CURRENTLY RESTING WITH BED IN LOWEST POSITION, AND CALL LIGHT WITHIN REACH.
[2022-05-28 05:56] LABS: Bun/Creatinine Ratio 24.8 (12.0-20.0); Calcium, Blood 7.8 mg/dL (8.5-10.1); Creatinine, Blood 0.97 mg/dL (0.60-1.20); Potassium, Blood 3.4 mmol/L (3.5-5.5)
--- NOTE | 2022-05-28 20:05 | NUR ---
SHIFT SUMMARY: PT A&O X3/4, DROWSEY, CONFUSED BUT EASILY REORIENTATED. PT HAD MILD ABDOMINAL TENDERNESS WITH PALPATION. PT HAS A BAH IN PLACE DRAINING YELLOW URINE WITH MODERATE AMOUNT OF SEDIMENT, AND A RECTAL TUBE IN PLACE DRAINING BROWN LIQUID STOOL. PT HAS BILATERAL POWER GLIDES NO BLOOD DRAW, FLUSHES AND INFUSING W/O DIFFICULTY. PT ASSESSED BY ST, PT CONTIUED ON PUREE AND NECTAR FLUIDS. PT ASSESSED BY PT/OT, PT ABLE TO SET ON SIDE OF THE BED 1 PERSON ASSIST, REQUIRED ASSISTANCE WITH MEALS FOR BREAKFAST, LUNCH AND ABLE TO EAT UNASSISTED DURING DINNER. PT AT THE END OF THE SHIFT AWAKE AND TALKING WITH STAFF, ABLE TO DRINK NECTAR FLUIDS UNASSISTED. PT HAD 2+ EDEMA BLE AND 1+ EDEMA BUE, SCD'S PLACED ON BLE. PT REPOSITIONED FREQUENTLY DURING THE SHIFT. PT RECTAL TUBE BAG REPLACED AT THE END OF SHIFT WITH OUTPUT 800ML OF BROWN LIQUID STOOL. PT ON BEDREST WITH CALL LIGHT WITHIN REACH.
[2022-05-29 06:40] LABS: Albumin, Blood 1.6 g/dL (3.4-5.0); Anion Gap 3 mmol/L (6-16); Blood Urea Nitrogen 19 mg/dL (8-24); Bun/Creatinine Ratio 19.8 (12.0-20.0); CO2, Blood 25 mmol/L (21-32); Calcium, Blood 7.7 mg/dL (8.5-10.1); Chloride, Blood 123 mmol/L (98-108); Creatinine, Blood 0.96 mg/dL (0.60-1.20); Glomerular Filtration Rate 85 (60-); Glucose, Blood 70 mg/dL (70-99); Phosphorus, Blood 3.2 mg/dL (2.5-4.9); Potassium, Blood 3.3 mmol/L (3.5-5.5); Sodium, Blood 151 mmol/L (136-145)
--- NOTE | 2022-05-29 17:33 | NUR ---
SHIFT SUMMARY NO ACUTE CHANGES DURING SHIFT. PT ALERT TO SELF, INTERMITTENT CONFUSION NOTED, PT REMAINS REDIRECTABLE, ABLE TO FOLLOW COMMANDS. BAH IN PLACE DRAINING TO GRAVITY, HEAVY SEDIMENT NOTED TO BAH BAG. FMS IN PLACE, APPROX 200ML OUTPUT DURING SHIFT. CONTINUED D5 AT 75 ML/HR, PT TOLERATING. ATTEMPTED TO HAVE PATIENT SIT AT EDGE OF BED OR TO CHAIR THIS AFTERNOON, PT REFUSED. PT APPEARS SOB WHEN SPEAKING, SHALLOW RESPIRATIONS NOTED. WILL CONTINUE TO MONITOR. CALL LIGHT WITHIN REACH.
[2022-05-30 06:28] LABS: Albumin, Blood 1.6 g/dL (3.4-5.0); Anion Gap 6 mmol/L (6-16); Blood Urea Nitrogen 17 mg/dL (8-24); Bun/Creatinine Ratio 20.3 (12.0-20.0); CO2, Blood 22 mmol/L (21-32); Calcium, Blood 7.6 mg/dL (8.5-10.1); Chloride, Blood 118 mmol/L (98-108); Creatinine, Blood 0.84 mg/dL (0.60-1.20); Glomerular Filtration Rate 93 (60-); Glucose, Blood 207 mg/dL (70-99); Phosphorus, Blood 3.3 mg/dL (2.5-4.9); Potassium, Blood 3.2 mmol/L (3.5-5.5); Sodium, Blood 146 mmol/L (136-145)
--- NOTE | 2022-05-30 17:31 | NUR ---
SHIFT SUMMARY NO ACUTE CHANGES DURING SHIFT. PT ALERT TO SELF AND SITUATION, INTERMITTENT CONFUSION NOTED, REDIRECTABLE. BAH IN PLACE, DRAINING TO GRAVITY. FMS IN PLACE, 50 ML LIQUID STOOL OUT DURING SHIFT. D5 STILL INFUSING AT 75ML/HR. PT REMAINS ON RA. WILL CONTINUE TO MONITOR. CALL LIGHT WITHIN REACH.
--- NOTE | 2022-05-30 21:41 | NUR ---
ESTELA FROM [facility] PRIOR TO PATIENTS TRANSFER TO ROOM 362.
--- NOTE | 2022-05-30 23:22 | NUR ---
LIZA CALLED ABOUT WHETHER OR NOT IRON LEVELS HAVE BEEN DRAWN AND/OR WHEN THEY WILL BE DRAWN SHE HEARD HIS HEMOGLOBIN WAS BEGINNING TO DROP (9), AND SHE IS FEARFUL HE WILL BECOME VERY ANEMIC IF HIS "IRON IS IN NEED OF REPLACING". SHE ASKED THAT THIS RN CALL THE HOSPITALIST AND ASK IF HE COULD HAVE AN IRON LEVEL WITH HIS AM LABS, AND TO CALL HER BACK AFTER SPEAKING WITH THE HOSPITALIST. MEAT PRESS OPERATOR INFORMED
[2022-05-31 04:59] LABS: Hematocrit 28.2 % (37.0-53.0); Hemoglobin 9.1 g/dL (13.5-17.5)
[2022-05-31 05:24] LABS: Albumin, Blood 1.6 g/dL (3.4-5.0); Anion Gap 5 mmol/L (6-16); Blood Urea Nitrogen 14 mg/dL (8-24); Bun/Creatinine Ratio 15.7 (12.0-20.0); CO2, Blood 25 mmol/L (21-32); Calcium, Blood 7.3 mg/dL (8.5-10.1); Chloride, Blood 113 mmol/L (98-108); Creatinine, Blood 0.89 mg/dL (0.60-1.20); Glomerular Filtration Rate 92 (60-); Glucose, Blood 224 mg/dL (70-99); Magnesium, Blood 2.2 mg/dL (1.6-2.4); Phosphorus, Blood 3.8 mg/dL (2.5-4.9); Potassium, Blood 3.3 mmol/L (3.5-5.5); Sodium, Blood 143 mmol/L (136-145)
--- NOTE | 2022-05-31 07:47 | NUR ---
FUNMI SLEPT ALL NIGHT AFTER ARRIVING IN HIS NEW ROOM. NO COMPLAINTS OF PAIN OR DISCOMFORT. LESS THAN 20ML OF WATERY BROWN STOOL IN RECTAL TUBE. VERY MINIMAL OUT OVER LAST 24 HOURS. BAH CATHETER DRAINING CLEAR YELLOW/VINAYAK URINE. LUNG SOUNDS WITH SCATTERED CRACKLES IN UPPER AIRWAYS. PATIENT HAS A WEAK NONPRODUCTIVE COUGH. HE WOKE THIS MORNING AND DRANK (VIA SPOON) 3/4 CUP OF HONEY THICK APPLE JUICE (WITH STAFF ASSIST.) LIZA CALLED LAST NIGHT VERY ANXIOUS TO HAVE PATIENT'S IRON CHECKED. SEE NURSING NOTE. HER NUMBER IS WRITTEN ON THE WHITE BOARD IN THE PATIENT'S ROOM AND SHE WOULD LIKE TO RECEIVE A CALL FROM TODAY'S HOSPITALIST IF POSSIBLE
[2022-05-31 09:36] LABS: Percent Saturation 12.5 % (20.0-50.0)
--- NOTE | 2022-05-31 18:15 | NUR ---
SHIFT SUMMARY PT IS AO, LETHARGIC AND WEAK. MOVED HIM TO THE CHAIR THIS SHIFT SO HE COULD WORK WITH PT. POSSIBLE DISCHARGE TOMORROW TO A FACILITY IN [place]. HIS VISITED TWICE TODAY. RECEIVED IV POTASSIUM TODAY. NECTAR THICK LIQUIDS ARE ORDERED PER DIET ORDER. BAH DRAINING WELL, NOT MUCH STOOL OUTPUT. WILL REPORT TO ONCOMING NURSE.
--- NOTE | 2022-06-01 06:45 | NUR ---
Shift Summary Pt is a lift patient on bedrest. He started the shift hypertensive with systolic greater than 200. Put is D5W infusion on KVO for a few hours gave PRN hydralazine. Checked BP periodically, systolic 150's for the rest of the night. Pt SR in the upper 90's on tele. VSS, no c/o pain or nausea. Slept well t/o the night.
[2022-06-01 07:29] LABS: Albumin, Blood 1.7 g/dL (3.4-5.0); Anion Gap 6 mmol/L (6-16); Blood Urea Nitrogen 13 mg/dL (8-24); Bun/Creatinine Ratio 15.3 (12.0-20.0); CO2, Blood 24 mmol/L (21-32); Calcium, Blood 7.6 mg/dL (8.5-10.1); Chloride, Blood 110 mmol/L (98-108); Creatinine, Blood 0.85 mg/dL (0.60-1.20); Glomerular Filtration Rate 93 (60-); Glucose, Blood 221 mg/dL (70-99); Phosphorus, Blood 3.5 mg/dL (2.5-4.9); Potassium, Blood 3.7 mmol/L (3.5-5.5); Sodium, Blood 140 mmol/L (136-145)
--- NOTE | 2022-06-01 17:12 | NUR ---
EVENING NOTE PT ALERT, ORIENTED. CALLS APPROPRIATELY. SBP ELEVATED. HYDRALZINE GIVEN X1. PT ABLE TO FEED HIMSELF THIS AFTERNOON. CT HEAD DONE. PT TOLERATED WELL. PT REFUSING TO HAVE RECTAL TUBE REMOVED. DURING BATH, REPOSITONED RECTAL TUBE PER POLICY. BAH PATENT. TUBING STAINED PADMINI/REDISH. POWER GLIDE R/L INTACT. WILL REMOVED TOMORROW PRIOR TO TRANSPORT. CONTINUE POC.
[2022-06-02 05:00] LABS: Albumin, Blood 1.8 g/dL (3.4-5.0); Anion Gap 4 mmol/L (6-16); Blood Urea Nitrogen 13 mg/dL (8-24); Bun/Creatinine Ratio 14.9 (12.0-20.0); CO2, Blood 27 mmol/L (21-32); Calcium, Blood 7.7 mg/dL (8.5-10.1); Chloride, Blood 111 mmol/L (98-108); Creatinine, Blood 0.87 mg/dL (0.60-1.20); Glomerular Filtration Rate 92 (60-); Glucose, Blood 89 mg/dL (70-99); Phosphorus, Blood 3.1 mg/dL (2.5-4.9); Potassium, Blood 3.7 mmol/L (3.5-5.5); Sodium, Blood 142 mmol/L (136-145)
[2022-06-02 05:31] LABS: SARS-Cov-2 (COVID-19) PCR, MMC NEGATIVE (NEGATIVE)
--- NOTE | 2022-06-02 07:21 | NUR ---
Shift Summary Pt remains very weak, unable to ambulate or reposition himself in bed. Shallow tachypnea at rest. Juan patent and draining lora urine. Blood glucose was 70 at 0600, gave pt applejuice and rechecked at 0640, BS 107. Plan is to D/C tonight to a rehab facility in [place]. Covid swab is negative at 0452 this AM. Pt hypertensive at night, given PRN hydralazine. He missed his nighlty metropolol dose, I gave him the pills and we both thought he took them but they were found this AM by his bedside intact. Pt very somnolent and lethargic. AOx3, pleasant and cooperative.
--- NOTE | 2022-06-02 08:14 | NUR ---
NOTE PLANNED D/C AT 1030. POWER GLIDE X2 REMOVED PRESSURE DRESSING APPLIED. RECTAL TUBE REMOVED. [facility] DONE. ATTENDS PLACED. CONTINUE POC.
--- NOTE | 2022-06-02 10:37 | NUR ---
DISCHARGE REPORT CALLED TO GILL AT [facility]. PT FERNY LIFTED TO W/C. SLING REMOVED. PT TOLERATED WELL. OLVIN SENT WITH PT FOR ERWIN TO REMOVED. COMMUNICATED TO [facility]Z REQUESTING THAT THEY REMOVE. WAITING TO FOLLOW TRANSPORT TO REHAB. CONTINUE POC.
[2022-06-02] MEDS ORDERED: ENOX40I SC (12:44)
[2022-06-02] MEDS ORDERED: ACET325 PO (12:44)
[2022-06-02] MEDS ORDERED: AMLO10 PO (12:44)
[2022-06-02] MEDS ORDERED: BANATROL PLUS1 EAC1 PO (12:44)
[2022-06-02] MEDS ORDERED: BASAGLAR K100 UNIT/6 SC (12:48)
[2022-06-02] MEDS ORDERED: HUMALOG KW100 UNIT/1 SC (12:48)
[2022-06-02] MEDS ORDERED: POTCHL20ER PO (12:49)
[2022-06-02] MEDS ORDERED: PANT40 PO (12:49)
[2022-06-02] MEDS ORDERED: VISBIOME 112.51 EACH PO (12:50)
== END 2022-06-02 10:27 | DRG 438 ==
LOC: ER 03:56 → ICUW 05:22 → ICUE 05:22 → MEDS 05:22 → ICUW 06:10 → PCU 05-18 21:10 → ICUE 05-20 08:43 → MEDS 05-26 14:22
PROVIDERS: Family Medicine; Internal Medicine; Internal Medicine Critical Care Medicine; Internal Medicine Nephrology; Student in an Organized Health Care Education/Training Program; ADMIT Internal Medicine
PROC: 02HV33Z Insertion of Infusion Device into Superior Vena Cava, Percutaneous Approach (ICD-10-PCS; principal; 2022-05-13)
PROC: B548ZZA Ultrasonography of Superior Vena Cava, Guidance (ICD-10-PCS; 2022-05-13)
PROC: 03HY32Z Insertion of Monitoring Device into Upper Artery, Percutaneous Approach (ICD-10-PCS; 2022-05-13)
PROC: 4A133B1 Monitoring of Arterial Pressure, Peripheral, Percutaneous Approach (ICD-10-PCS; 2022-05-13)
PROC: 4A133J1 Monitoring of Arterial Pulse, Peripheral, Percutaneous Approach (ICD-10-PCS; 2022-05-13)
PROC: B34HZZZ Ultrasonography of Right Upper Extremity Arteries (ICD-10-PCS; 2022-05-13)
PROC: 3E033XZ Introduction of Vasopressor into Peripheral Vein, Percutaneous Approach (ICD-10-PCS; 2022-05-13)
PROC: 3E03329 Introduction of Other Anti-infective into Peripheral Vein, Percutaneous Approach (ICD-10-PCS; 2022-05-13)
PROC: 5A1945Z Respiratory Ventilation, 24-96 Consecutive Hours (ICD-10-PCS; 2022-05-13)
PROC: 0BH17EZ Insertion of Endotracheal Airway into Trachea, Via Natural or Artificial Opening (ICD-10-PCS; 2022-05-13)
PROC: 5A09457 Assistance with Respiratory Ventilation, 24-96 Consecutive Hours, Continuous Positive Airway Pressure (ICD-10-PCS; 2022-05-13)
PROC: 4A133R1 Monitoring of Arterial Saturation, Peripheral, Percutaneous Approach (ICD-10-PCS; 2022-05-14)
PROC: 02HV33Z Insertion of Infusion Device into Superior Vena Cava, Percutaneous Approach (ICD-10-PCS; 2022-05-14)
PROC: 4A033R1 Measurement of Arterial Saturation, Peripheral, Percutaneous Approach (ICD-10-PCS; 2022-05-14)
PROC: 0DH67UZ Insertion of Feeding Device into Stomach, Via Natural or Artificial Opening (ICD-10-PCS; 2022-05-20)
DX: K85.90 Acute pancreatitis without necrosis or infection, unspecified (principal); A41.9 Sepsis, unspecified organism; E11.10 Type 2 diabetes mellitus with ketoacidosis without coma; R65.21 Severe sepsis with septic shock; R57.1 Hypovolemic shock; J96.01 Acute respiratory failure with hypoxia; G92.8 Other toxic encephalopathy; N17.9 Acute kidney failure, unspecified; I24.8 Other forms of acute ischemic heart disease; E87.1 Hypo-osmolality and hyponatremia; E87.0 Hyperosmolality and hypernatremia; E87.4 Mixed disorder of acid-base balance; E46 Unspecified protein-calorie malnutrition; J98.11 Atelectasis; E86.0 Dehydration; E87.6 Hypokalemia; E88.09 Other disorders of plasma-protein metabolism, not elsewhere classified; E87.70 Fluid overload, unspecified; F32.A Depression, unspecified; I10 Essential (primary) hypertension; R13.10 Dysphagia, unspecified; D69.6 Thrombocytopenia, unspecified; I48.0 Paroxysmal atrial fibrillation; K80.20 Calculus of gallbladder without cholecystitis without obstruction; E78.5 Hyperlipidemia, unspecified; D63.8 Anemia in other chronic diseases classified elsewhere; E83.42 Hypomagnesemia; E11.65 Type 2 diabetes mellitus with hyperglycemia; I25.10 Atherosclerotic heart disease of native coronary artery without angina pectoris; E83.51 Hypocalcemia; K21.9 Gastro-esophageal reflux disease without esophagitis; Z20.822 Contact with and (suspected) exposure to COVID-19; Z79.899 Other long term (current) drug therapy; I25.2 Old myocardial infarction; Z95.5 Presence of coronary angioplasty implant and graft; Z98.890 Other specified postprocedural states; Z79.82 Long term (current) use of aspirin; Z79.84 Long term (current) use of oral hypoglycemic drugs; Z68.31 Body mass index [BMI] 31.0-31.9, adult
CPT/HCPCS: 0241U; 31500; 36415; 36556; 51702; 70450; 71045; 74176; 74230; 80047; 80048; 80053; 80061; 80069; 80076; 80202; 81001; 82010; 82248; 82330; 82550; 82553; 82570; 82607; 82728; 82746; 82803; 82947; 83036; 83540; 83550; 83605; 83690; 83735; 83880; 83935; 84100; 84145; 84156; 84295; 84300; 84484; 84540; 85014; 85018; 85025; 85027; 85610; 87040; 87070; 87086; 87205; 87493; 92526; 92610; 92611; 93005; 93010; 93306; 94002; 94003; 94640; 94644; 94660; 94664; 94760; 94762; 96361; 96365; 96368; 96375; 97110; 97162; 97166; 97530; 97535; 99285-25; A9270; C1751; C1752; C9113; J0360; J0610; J0696; J1644; J1650; J1815; J1940; J2060; J2250; J2370; J2405; J2543; J2704; J3010; J3370; J3475; J3480; J7030; J7040; J7050; J7060; J7070; J7120; P9047; U0004

== ENCOUNTER 2022-10-22 02:08 | Emergency (ER) | payer MEDICARE ==
[~2022-10-22] VITALS: Ht 172.7 cm; Wt 81.7 kg
[~2022-10-22 02:08] MED LIST changes: +ACET325 PO; +AMLO10 PO; +BANATROL PLUS1 EAC1 PO; +BASAGLAR K100 UNIT/6 SC; +ENOX40I SC; +FENOFIBRATE145 MG PO; +GLIMEPIRIDE2 M2 PO; +Glipizide Xl2.5 MG PO; +HUMALOG KW100 UNIT/1 SC; +LOSARTAN POTASS25 M2 PO; +PANT40 PO; +POTCHL20ER PO; +VISBIOME 112.51 EACH PO
[2022-10-22 05:35] LABS: BASOPHILS ABSOLUTE AUTO 0.05 K/mm3 (0.00-0.23); BASOPHILS PERCENT AUTO 1 % (0-2); EOSINOPHILS ABSOLUTE AUTO 0.09 K/mm3 (0.00-0.68); EOSINOPHILS PERCENT AUTO 1 % (0-6); Hematocrit 41.3 % (37.0-53.0); Hemoglobin 13.6 g/dL (13.5-17.5); IMMATURE GRAN ABSOLUTE AUTO 0.02 K/mm3 (0.00-0.10); IMMATURE GRAN PERCENT AUTO 0 % (0-1); LYMPHOCYTES ABSOLUTE AUTO 1.22 K/mm3 (0.84-5.20); LYMPHOCYTES PERCENT AUTO 13 % (21-46); MONOCYTES ABSOLUTE AUTO 0.62 K/mm3 (0.16-1.47); MONOCYTES PERCENT AUTO 7 % (4-13); Mean Corpuscular HGB 27.6 pg (26.0-34.0); Mean Corpuscular HGB Conc 32.9 g/dL (31.5-36.5); Mean Corpuscular Volume 84 fL (80-100); Mean Platelet Volume 10.5 fL (9.1-12.4); NEUTROPHILS ABSOLUTE AUTO 7.43 K/mm3 (1.96-9.15); NEUTROPHILS PERCENT AUTO 79 % (41-73); Platelet Count 194 K/mm3 (150-400); RDW Coefficient Variation 14.4 % (11.7-14.2); RDW Standard Deviation 43.8 fL (35.1-46.3); Red Blood Cell Count 4.93 M/mm3 (4.30-5.90); White Blood Cell Count 9.43 K/mm3 (4.00-11.30)
[2022-10-22 05:56] LABS: Albumin, Blood 3.7 g/dL (3.4-5.0); Bilirubin, Total 0.4 mg/dL (0.1-1.0); Bun/Creatinine Ratio 20.1 (12.0-20.0); Calcium, Blood 8.6 mg/dL (8.5-10.1); Creatinine, Blood 0.7 mg/dL (0.60-1.20); Globulin, Blood 3.7 g/dL (2.2-4.0); Potassium, Blood 4.4 mmol/L (3.5-5.5); Total Protein, Blood 7.4 g/dL (6.4-8.2)
[2022-10-22 06:30] VITALS: BP 153/83
== END 2022-10-22 06:30 | disposition home or self-care (01) ==
LOC: ER 02:08
PROVIDERS: Student in an Organized Health Care Education/Training Program
DX: E11.649 Type 2 diabetes mellitus with hypoglycemia without coma (principal); I25.2 Old myocardial infarction; I25.10 Atherosclerotic heart disease of native coronary artery without angina pectoris; E11.10 Type 2 diabetes mellitus with ketoacidosis without coma; Z88.6 Allergy status to analgesic agent; Z79.84 Long term (current) use of oral hypoglycemic drugs; Z79.4 Long term (current) use of insulin; Z79.899 Other long term (current) drug therapy
CPT/HCPCS: 80053; 82947; 85025; 99283

== ENCOUNTER 2024-03-29 18:15 | Emergency (ER) | payer MEDICARE ==
[~2024-03-29] VITALS: Ht 188 cm; Wt 95.2 kg
[2024-03-29 19:13] VITALS: BP 168/69
[2024-03-29 19:52] LABS: CORONAVIRUS COVID-19 AG Negative (NEGATIVE); INFLUENZA A AG Positive (NEGATIVE); INFLUENZA B AG Negative (NEGATIVE)
[2024-03-29 20:40] LABS: BASOPHILS ABSOLUTE AUTO 0.03 K/mm3 (0.00-0.23); BASOPHILS PERCENT AUTO 0 % (0-2); EOSINOPHILS PERCENT AUTO 0 % (0-6); Hematocrit 45.5 % (37.0-53.0); Hemoglobin 15.1 g/dL (13.5-17.5); IMMATURE GRAN ABSOLUTE AUTO 0.03 K/mm3 (0.00-0.10); IMMATURE GRAN PERCENT AUTO 0 % (0-1); LYMPHOCYTES ABSOLUTE AUTO 0.43 K/mm3 (0.84-5.20); LYMPHOCYTES PERCENT AUTO 6 % (21-46); MONOCYTES ABSOLUTE AUTO 0.81 K/mm3 (0.16-1.47); MONOCYTES PERCENT AUTO 12 % (4-13); Mean Corpuscular HGB 28.7 pg (26.0-34.0); Mean Corpuscular HGB Conc 33.2 g/dL (31.5-36.5); Mean Corpuscular Volume 86 fL (80-100); Mean Platelet Volume 10.7 fL (9.1-12.4); NEUTROPHILS ABSOLUTE AUTO 5.77 K/mm3 (1.96-9.15); NEUTROPHILS PERCENT AUTO 82 % (41-73); Platelet Count 158 K/mm3 (150-400); RDW Coefficient Variation 13.1 % (11.7-14.2); Red Blood Cell Count 5.27 M/mm3 (4.30-5.90); White Blood Cell Count 7.07 K/mm3 (4.00-11.30)
[2024-03-29 21:08] LABS: Albumin, Blood 4.2 g/dL (3.4-5.0); Albumin/Globulin Ratio 1.1 (0.8-1.8); Bilirubin, Total 0.8 mg/dL (0.1-1.0); Bun/Creatinine Ratio 13.8 (12.0-20.0); Calcium, Blood 9.3 mg/dL (8.5-10.1); Creatinine, Blood 1.16 mg/dL (0.60-1.20); Globulin, Blood 3.8 g/dL (2.2-4.0); Potassium, Blood 3.9 mmol/L (3.5-5.5)
== END 2024-03-29 21:48 | disposition home or self-care (01) ==
LOC: ER 18:15
PROVIDERS: Student in an Organized Health Care Education/Training Program
DX: J10.1 Influenza due to other identified influenza virus with other respiratory manifestations (principal); E11.9 Type 2 diabetes mellitus without complications; Z79.4 Long term (current) use of insulin; Z79.899 Other long term (current) drug therapy; Z88.8 Allergy status to other drugs, medicaments and biological substances
CPT/HCPCS: 71046; 80053; 82947; 85025; 87428-QW; 99283-25